=== PATIENT | male | born 1940 | race Caucasian/White ===

== ENCOUNTER 2023-03-18 08:57 | Outpatient (REF) | payer MEDICARE, MEDICAID, SELFPAY | END 2023-03-18 08:58 | disposition home or self-care (01) | LOC: CF 08:57 | PROVIDERS: Visit Provider Neurological Surgery | DX: Z13.89 Encounter for screening for other disorder (principal) ==

== ENCOUNTER 2023-03-31 14:18 | Outpatient (AMB) | payer MEDICARE, MEDICAID, SELFPAY ==
--- NOTE | 2023-03-31 15:35 | HO.SPINEOV ---
Intake Intake Visit Reasons: Back pain/MRI denied Converting Operator Required: No Assessment & Plan Assessment & Plan (1) Lumbar stenosis with neurogenic claudication: Code(s): M48.062 - Spinal stenosis, lumbar region with neurogenic claudication (2) Bilateral leg weakness: Code(s): R29.898 - Other symptoms and signs involving the musculoskeletal system Plan Dear colleague, On 03/31/2023, I saw Daquan Collier for back pain and severe bilateral leg pain with weakness. He underwent an L3-S1 lumbar fusion in 2021 and was doing fantastic up to a few months ago where he developed mild back pain. He then developed acute severe back pain radiating in both legs in the middle of the night. Since then the pain has persisted being 10/10. He also has weakness of his proximal legs and difficulty getting out of a chair. He can hardly walk or stand. He walks with a walker in a flexed position to get some relief. Sitting on a hard chair gives relief. Sleeping is very painful. It takes him 45 minutes to an hour to get comfortable in the morning. On exam, there is a 3/5 paresis of the bilateral iliopsoas with the right side is slightly weaker than the left side. There are no sensory changes. The absent reflexes. There is no imaging for review. This patient is suffering from acute back pain radiating down both legs with weakness a few months ago. Apparently an MRI was denied by the insurance company but obviously the symptoms warrant an MRI of the lumbar spine as his clinical presentation is highly suspicious for a acute disc herniation above the previous fusion. I will order the MRI of the lumbar spine and will see him after the test is done. I spent 45 minute in this consult for preparation, review of imaging and discussing plan of care. Jimmy Martin MD, PhD Spine Fellowship Trained Neurosurgeon Director, [facility] Orders: Orders MR lumbar spine wo con Today M48.062 - Spinal stenosis, lumbar region with neurogenic claudication, R29.898 - Other symptoms and signs involving the musculoskeletal system Coding Level of Care Code Est Pt Level 4 (01085) Diagnoses Lumbar stenosis with neurogenic claudication M48.062 Bilateral leg weakness R29.898
== END 2023-03-31 16:26 | disposition home or self-care (01) ==
PROVIDERS: PCP Family Medicine; Visit Provider Neurological Surgery
DX: M48.062 Spinal stenosis, lumbar region with neurogenic claudication (principal); R29.898 Other symptoms and signs involving the musculoskeletal system
CPT/HCPCS: 99214

== ENCOUNTER → 2023-03-31 14:18 | Outpatient (BNVA) | payer MEDICARE, MEDICAID, SELFPAY | PROVIDERS: PCP Family Medicine; Visit Provider Neurological Surgery | DX: M48.062 Spinal stenosis, lumbar region with neurogenic claudication (principal); R29.898 Other symptoms and signs involving the musculoskeletal system; Z98.1 Arthrodesis status | CPT/HCPCS: 99212 ==

== ENCOUNTER 2023-08-03 06:07 | Inpatient (IN) | payer MEDICARE, OTHER, SELFPAY ==
[2023-05-19 09:59] VITALS: BMI 31.6
--- NOTE | 2023-07-28 10:37 | HO.ANESPROP2 ---
Documented by User: Kiana Craig NP 07/30/23 14:12 HPI - Anesthesia Eval Consult details Narrative: 82yo M for L2-3 Transkambin Lumbar Interbody Fusion with Removal of previous L3-S1 Instrumentation PCP cleared. 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 No CP/SOB. Reviewed with Dr Malone. Ok to proceed. Pt unable to attend [facility] Active Problems Active Problems: All Active Problems Bilateral leg weakness (Acute) Lumbar stenosis with neurogenic claudication (Acute) Lumbar degenerative disc disease (Acute) Past Medical History Medical History (Updated 05/19/23 @ 09:57 by Salina Jackson, RN) History of prostate cancer BPH (benign prostatic hyperplasia) Ambulates with cane Weakness of both legs Back pain Spinal stenosis HTN (hypertension) Surgical History Surgical History Hx of melanoma excision History of carpal tunnel release Hx of colonoscopy Hx of inguinal hernia repair History of fusion of lumbar spine Hx of repair of right rotator cuff Social History Social History (Updated 05/19/23 @ 09:58 by Salina Jackson, DESTINEY) Household Members: Spouse Housing: Apartment Patient Tobacco Use Status: Never used Tobacco Use of substances other than those prescribed or required for medical reasons: No Have you been hit, kicked, punched, or otherwise hurt by someone within the past year? If so, by whom?: No Are you DNR?: No Advance Directives: No Advance Directives Information Provided: Yes Advance Directives on File: No Recently lost weight without trying: No Nutrition Risks: Surgical patient >75years Meds Allergies Allergy/AdvReac Type Severity Reaction Status Date / Time levofloxacin [From Levaquin] Allergy Severe Tingling Verified 08/03/23 06:19 all over Home Medications ?Medication ?Instructions ?Recorded ?Confirmed ?Last Taken ?Type cholecalciferol (vitamin D3) 125 125 mcg PO DAILY 05/18/23 08/03/23 08/02/23 History mcg (5,000 unit) tablet (Vitamin D3) docusate sodium 50 mg capsule 50 mg PO DAILY PRN Constipation 05/18/23 08/03/23 Unknown History finasteride 5 mg tablet 5 mg PO DAILY 05/18/23 08/03/23 08/02/23 History gabapentin 100 mg capsule 200 mg PO BEDTIME 05/18/23 08/03/23 08/02/23 History losartan 50 mg tablet 50 mg PO BID 05/18/23 08/03/23 08/02/23 History omeprazole 20 mg capsule,delayed 20 mg PO BID PRN Gastric Reflux 05/18/23 08/03/23 Unknown History release tamsulosin 0.4 mg capsule 0.4 mg PO DAILY 05/18/23 08/03/23 08/02/23 History Exam Height,Weight and Vital Signs: Height 5 ft 10 in Weight 99.79 kg Pertinent Lab Results Pertinent Lab Results: CBC and BMP from outside facility 06/2023 [place] Narrative Narrative: EKG 04/2023 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 Assessment and Plan Assessment Anesthesia Assessment: Chart Reviewed Documented by User: Pablito Guerra MD 08/03/23 07:08 [facility] Past Medical History Medical History (Updated 05/19/23 @ 09:57 by Salina Jackson, DETSINEY) History of prostate cancer BPH (benign prostatic hyperplasia) Ambulates with cane Weakness of both legs Back pain Spinal stenosis HTN (hypertension) Family History Family history of problems with anesthesia: No Surgical History Surgical History Hx of melanoma excision History of carpal tunnel release Hx of colonoscopy Hx of inguinal hernia repair History of fusion of lumbar spine Hx of repair of right rotator cuff History of Problems with Anesthesia: No Social History Social History (Updated 05/19/23 @ 09:58 by Salina Jackson RN) Household Members: Spouse Housing: Apartment Patient Tobacco Use Status: Never used Tobacco Use of substances other than those prescribed or required for medical reasons: No Have you been hit, kicked, punched, or otherwise hurt by someone within the past year? If so, by whom?: No Are you DNR?: No Advance Directives: No Advance Directives Information Provided: Yes Advance Directives on File: No Recently lost weight without trying: No Nutrition Risks: Surgical patient >75years Meds Allergies Allergy/AdvReac Type Severity Reaction Status Date / Time levofloxacin [From Levaquin] Allergy Severe Tingling Verified 08/03/23 06:19 all over Home Medications ?Medication ?Instructions ?Recorded ?Confirmed ?Last Taken ?Type cholecalciferol (vitamin D3) 125 125 mcg PO DAILY 05/18/23 08/03/23 08/02/23 History mcg (5,000 unit) tablet (Vitamin D3) docusate sodium 50 mg capsule 50 mg PO DAILY PRN Constipation 05/18/23 08/03/23 Unknown History finasteride 5 mg tablet 5 mg PO DAILY 05/18/23 08/03/23 08/02/23 History gabapentin 100 mg capsule 200 mg PO BEDTIME 05/18/23 08/03/23 08/02/23 History losartan 50 mg tablet 50 mg PO BID 05/18/23 08/03/23 08/02/23 History omeprazole 20 mg capsule,delayed 20 mg PO BID PRN Gastric Reflux 05/18/23 08/03/23 Unknown History release tamsulosin 0.4 mg capsule 0.4 mg PO DAILY 05/18/23 08/03/23 08/02/23 History Exam Airway Mallampati Class: I TM Dist: >3cm Neck ROM: Full Partial: Upper Loose/Missing/Broken Teeth: No Heart: rrr Lungs: cta Assessment and Plan Assessment Anesthesia Assessment: Anesthesia Plan Discussed Final Anesthetic Review Family History of Problems with Anesthesia: No History of Problems with Anesthesia: No NPO: Yes ASA Class: II Final Preanesthetic Review: No Changes in Pt Med Stat, Meds/Allgs Chart Reviewed, Consent Obtained/Reviewed and Anes Risks/Benef Reviewed Patient Risk: Intermediate Procedure Risk: Intermediate Anesthetic Plan Anesthetic Plan: GA Disposition: Standard PACU
[2023-08-03] VITALS (15 sets, daily range): BP systolic 131–173; BP diastolic 64–80; PULSE 71–93; RESP 16–20; TEMP 36.1–36.7; O2SAT 94–98; BMI 32.4; BMI 32.9
--- NOTE | ~2023-08-03 | FL_ITS ---
EXAMINATION: XR FLUOROSCOPY WITH IMAGES CLINICAL INFORMATION: L2-L3 Trans-Kambin Lumbar Interbody fusion. COMPARISON: X-ray outside March 2023. TECHNIQUE: Fluoroscopy Supervised By: Mario. Fluoroscopy Time: 84.8 seconds. Cumulative Dose: 57 mGy. DAP: 16 Gycm2. Images: 2. FINDINGS: Images demonstrate new posterior fusion hardware with rods and bilateral interpedicular screws and new disc interspacer at L2-L3. Disc cage seen at L3-L4. FL/FL guidance in OR IMPRESSION: Fluoroscopy guidance for lumbar spine surgery.
[2023-08-03] MEDS: Gabapentin 300 MG CAPSULE PO (06:44)
[2023-08-03] MEDS: methocarbamoL 750 MG TABLET PO (06:44)
[2023-08-03] MEDS: Lactated Ringers 1,000 ML 100 ML IVCONT (06:51)
--- NOTE | 2023-08-03 07:11 | P.HPSUR_ITS ---
Pre-Procedural Eval Section A - 24 Hr Update-Section A only Date of Service: 08/03/23 The patient is an INPATIENT: No Changes since office visit: No Cold of Flu in the past 2 weeks, No New Medical Problems, No Changes in Medication and No Patient answered all questions The patient has been examined within 24 hours of the surgical procedure. The History & Physical has been completed within 30 days and I have reviewed it.: No Section B - Complete if H&P > 30 days Chief Complaint: s/p L2-3 transkambin Allergies: Allergies Allergy/AdvReac Type Severity Reaction Status Date / Time levofloxacin [From Levaquin] Allergy Severe Tingling Verified 08/03/23 06:19 all over Review of Systems Sugical H&P ROS: Negative: Constitution, Cardiovascular, Respiratory, Neurological, Psychiatric, Hem-Onc, Allergic/Immunologic, Gastrointestinal, Genitourinary, Musculoskeletal, Integumentary, Endocrine and Eyes/Ea rs/Nose/Throat Exam Surgical H&P Exam: Normal: Neurological (awake, alert, oriented ) Plan Diagnosis/Plan: Unchanged L2-3 transkambin interbody fusion with revision of posterior instrumention Time Spent With Patient Time: Total time managing care of this patient today _5___ minutes.
--- NOTE | 2023-08-03 09:43 | W.PM.OPN ---
Operative Note Operative Note Date of Service: 08/03/23 Narrative: Preoperative diagnosis: 1) adjacent degenerative disc disease L2-3 with spinal stenosis 2) status post L3-S1 fusion Postprocedure diagnosis: 1) same as above Procedure: 1) L2-3 oblique lateral lumbar interbody fusion with discectomy, preparation of the endplates and placement of a titanium bullet cage packed with allograft, anterior to the transverse process in modified prone position, with intraoperative biplanar fluoroscopy imaging and electrophysiological monitoring 2) removal L3-S1 posterior instrumentation followed by posterior minimally invasive pedicle screw placement and posterior lateral instrumentation and fusion L2-3 with intraoperative biplanar fluoroscopic imaging and electrophysiological monitoring 3 injection of 10 cc of Exparel at the L2 bilateral transverse processi for a muscular erector spinae block and additional Exparel in paravertebral tissue for postop management Consent Informed Consent was obtained for this operation. I have explained the nature, purpose and benefits of the operation. I have discussed the risks and benefit of the operation including possible complications or adverse events with patient/family. Alternative(s) were discussed with the patient with their relative benefits and risks as well as the consequences of not accepting the operation were included in obtaining consent. Surgeon: LEN HEATH MD, PHD Procedure Assisted By: thi Patel Description of Procedure: This is a complex surgery on the lumbar spine and an life science research assistant as needed for safety of the surgery for setup of instrumentation, retraction and closing. History: This 82-year-old male had a previous L3-S1 fusion done. He presented with adjacent degenerative disc disease L2-3. The patient was offered an oblique lumbar lateral interbody fusion L2-3, removal of L3-S1 posterior instrumentation followed by a posterior lateral instrumented fusion L2-3. The procedure and complications were explained and the patient was consented. Procedure: The patient was brought to the operating room and endotracheally intubated. The patient was positioned on the Joseph spine table in a modified prone position for ease of access from the left side.. 2C arms were installed for fluoroscopy. Prepping and draping was done followed by timeout. The landmarks, including spinal processes, transverse processes, disc space, endplates and pedicles are identified and marked. The following steps are taken for each specified level: L2-3 level: Cage size 10 mm high and 30 mm long titanium . The patient was turned using the rotation of the surgical table so a near direct anterior lateral approach to the lumbar spine could be achieved. A small incision was then made superior to the mid iliac crest and then using biplanar fluoroscopy visualization, under electrophysiological monitoring and stimulation, we introduced an electrophysiological probe through the retroperitoneal space into the desired disc anterior to the transverse process and then passed it into the disc space after finding a silent window. The sleeve was retained and the probe was removed, then the K wire was passed sequentially into the disc space. A dilating tube was then passed along the same route. Following this, a working channel, a working channel was then passed sequentially into the disc space. The working channel was manually held in position while a series of disc cleaning tools were passed through the channel to remove the affected disc under clear and direct biplanar fluoroscopic visualization, decompress the nerve roots and equal corticated vertebral endplates at this segment. Arthrodesis of the intervertebral space via an anterior retroperitoneal exposure was achieved through Kambin's [place] and lateral extraforaminal space. Allograft was added into the anterior disc space. The working channel was then removed. A titanium interbody cage tightly packed with allograft was then inserted into the midportion of the intervertebral disc space over a K-wire under biplanar fluoroscopic visualization and intraoperative neuro monitoring. The inter pedicular and intradiscal space was significantly enlarged and disc height was restored to worked normal anatomy there for releasing pressure on the nerve roots visual largely the spinal canal and lateral recess as well as foramen were bilateral decompressed and all bones were confined to the borders of the disc space . Accordingly, the previous paramedian incisions were opened bilaterally to expose the posterior instrumentation. The locking caps are removed from L3-S1 bilaterally, the rods were taken out as well as the screws. A new 7.5 x 45 mm screw was inserted into the previous L3 path. Finally, the entry point to the left L2 pedicle is identified in the AP and lateral views and then the skin incision is injected with local anesthetic. We entered the pedicle with the pediguard tap after which a K-wire was introduced into the vertebral body. This was also done for the right L2 pedicle. Additionally, I used a small periosteal decorticator along the screws to refresh the surface of the bone and facet and I put some amount of allograft for additional stability for the posterolateral fusion. Over the K-wire we insert pedicle screws bilaterally with a diameter of 6.5 x 45 mm. After the screws were placed, we put the lito in place and under fluoroscopic imaging, we locked the lito in place and removed the screw tops and then each incision has been closed with 0 Vicryl for the fascia and a 3-0 Vicryl for the subdermal layer. Steri-Strips were used to approximate the incisions. An OpSite with Tegaderm was used to cover the incision. Final x-rays and AP and lateral projection showed good position of the interbody device and instrumentation. All sponge and needle counts were correct. The patient was extubated and transported in a stable condition to the recovery room. 2-0 Vicryl This procedure was done with the aid of a physician life science research assistant as a qualified resident was not available. Anesthesia: General Estimated Blood Loss (ml): 30 mL Specimen: None Duration of Surgery: 90 minutes Postoperative Plan: Admit to inpatient
[2023-08-03] MEDS: Ketorolac Tromethamine 15 MG/ML VIAL IVPUSH ×2 (11:53→17:00)
[2023-08-03] MEDS: ceFAZolin Sodium/Dextrose,Iso 2 GM/50 ML PIGGYBACK IV ×2 (13:43→20:35)
--- NOTE | 2023-08-03 14:00 | PHA.MEDREC ---
Pharmacy Consult ? Medication Reconciliation Pharmacy has completed the medication reconciliation.
[2023-08-03] MEDS: Acetaminophen 1,000 MG/100 ML PIGGYBACK 400 MG IV ×2 (14:34→20:11)
--- NOTE | 2023-08-03 14:35 | PC.NURSE ---
pt voided at this time
[2023-08-03] MEDS: Gabapentin 100 MG CAPSULE 200 MG PO (20:05)
[2023-08-03] MEDS: hydrOXYzine HCL 25 MG TABLET PO (20:05)
[2023-08-03] MEDS: Losartan Potassium 50 MG TABLET PO (20:06)
[2023-08-04] MEDS: Ketorolac Tromethamine 15 MG/ML VIAL IVPUSH ×3 (01:25→13:29)
[2023-08-04] MEDS: Acetaminophen 1,000 MG/100 ML PIGGYBACK 400 MG IV ×2 (01:36→09:36)
[2023-08-04] MEDS: ceFAZolin Sodium/Dextrose,Iso 2 GM/50 ML PIGGYBACK IV (01:56)
[2023-08-04 03:07] VITALS: BP 131/62; PULSE 67; RESP 18; TEMP 36.3; O2SAT 94
[2023-08-04] MEDS: Omeprazole 20 MG CAPSULE.DR PO (05:19)
[2023-08-04 06:53] VITALS: BP 145/63; PULSE 69; RESP 16; TEMP 36.6; O2SAT 97
--- NOTE | 2023-08-04 07:22 | P.DS_ITS ---
DS: Providers Provider Date of Service: 08/04/23 Date of admission: 08/03/23 06:07 Primary care physician: Javi Mcginnis MD DS: Summary Time Attestation Discharge Coordination Time (in mins): 10 Quality: Safe Use of Opioids Does Pt have an Active Cancer Diagnosis on the Problem List?: No Quality: Stroke Does the patient have a stroke diagnosis?: No Physical Exam Vital Signs: Vital Signs: Last Vital Signs Temp 97.9 F 08/04/23 06:53 Pulse 69 08/04/23 06:53 Resp 16 08/04/23 06:53 BP 145/63 H 08/04/23 06:53 Pulse Ox 97 08/04/23 06:53 O2 Del Method Room Air 08/04/23 06:53 O2 Flow Rate 2 08/03/23 11:15 BMI result Body Mass Index 32.9 Discharge Plan Discharge Anticipated Discharge Date/Time: 08/04/23 07:24 Patient Disposition: Home, Self-Care Discharge Diagnosis: S/P L2-3 Transkambin lumbar fusion Referrals: Javi Mcginnis MD [Primary Care Provider] - 1 Week Discharge Medications: New oxycodone 5 mg tablet 5 mg PO Q6H PRN (Reason: severe pain (scale score 7-10)) Qty: 30 0RF Rx Instructions: Partial Fill upon patient request. hydroxyzine HCl 25 mg tablet 25 mg PO TID Qty: 30 0RF gabapentin 300 mg capsule 300 mg PO TID Qty: 60 0RF baclofen 5 mg tablet 5 mg PO TID Qty: 30 0RF Continued losartan 50 mg tablet 50 mg PO BID tamsulosin 0.4 mg capsule 0.4 mg PO DAILY omeprazole 20 mg capsule,delayed release(DR/EC) 20 mg PO BID PRN (Reason: Gastric Reflux) finasteride 5 mg tablet 5 mg PO DAILY docusate sodium 50 mg Capsule 100 mg PO BEDTIME PRN (Reason: Constipation) cholecalciferol (vitamin D3) [Vitamin D3] 125 mcg (5,000 unit) Tablet 125 mcg PO DAILY Held gabapentin 100 mg capsule 200 mg PO BEDTIME Hold Instructions: Resume on 09/03/23. Take gabapentin that we Rx for time being Discharge Orders: Discharge Order (Routine); Ordered 08/04/23 Ordered By: Surinder Kirkland Diet: Advance to usual diet Activity on Discharge: As tolerated Stand Alone Forms: Patient Portal Discharge page Print Language: Malaysian Care Plan Goals: Return to normal activity as tolerated Health Concerns: None Plan of Treatment: Follow-up in clinic in 2-3 weeks Assessment: POD: 1 Procedure: L2-3 Transkambin lumbar fusion, removal of previous hardware L3-S1 Daquan was seen this morning sitting upright in bed on 3-. Patient reports he is up ambulating to the bathroom and tolerating diet. He He still reports mild low back / right leg pain, with good relief with pain medication. He states he is agreeable to returning home today and overall feels better than he did pre-operatively. Afebrile, vital signs stable. Full strength 5/5 LEs. Back dressings have some staining without signs of hematoma. No active sanguineous drainage. Area is dry. Plan: Daquan is POD:1 s/p L2-3 Transkambin with removal of previous fusion instrumentation. He is voiding well, ambulating independently, and tolerating diet. I sent in a prescription for oxycodone, gabapentin, hydroxyzine, baclof en. The patient was encouraged that the right-sided leg pain should resolve in the coming weeks, and is likely a result of the surgery. As long as the patient is cleared by Physical therapy this morning there should be no barriers to him returning home. This plan was discussed with the attending neurosurgeon Dr. Martin. Surinder Martin MD,PhD [facility]
--- NOTE | 2023-08-04 07:33 | HO.NEUROPN_ITS ---
Neurosurgery Operative Note Date of Service: 08/04/23 Narrative: POD: 1 Procedure: L2-3 Transkambin lumbar fusion, removal of previous hardware L3-S1 Daquan was seen this morning sitting upright in bed on . Patient reports he is up ambulating to the bathroom and tolerating diet. He He still reports mild low back / right leg pain, with good relief with pain medication. He states he is agreeable to returning home today and overall feels better than he did pre-operatively. Afebrile, vital signs stable. Full strength 5/5 LEs. Back dressings have some staining without signs of hematoma. No active sanguineous drainage. Area is dry. Plan: Daquan is POD:1 s/p L2-3 Transkambin with removal of previous fusion instrumentation. He is voiding well, ambulating independently, and tolerating diet. I sent in a prescription for oxycodone, gabapentin, hydroxyzine, baclofen. The patient was encouraged that the right-sided leg pain should resolve in the coming weeks, and is likely a result of the surgery. As long as the patient is cleared by Physical therapy this morning there should be no barriers to him returning home. This plan was discussed with the attending neurosurgeon Dr. Martin. Surinder Martin MD,PhD [facility]
--- NOTE | 2023-08-04 09:08 | MHC.CM.PN ---
IMM DELIVERED. PT LIVES WITH . PT USES [facility] FOR MOBILITY. +HCP AT HOME, COPY REQUESTED. PCP DR. MAGALI BARBOSA DP: PT HAS BEEN MEDICALLY CLEARED FOR DC HOME WITH NEW SERVICES VIA [facility]PT[facility] AND IS ABLE TO [place], CONTRACTED WITH INSURANCE. SON WILL TRANSPORT HOME AT 4 PM.
[2023-08-04 09:36] VITALS: BP 145/63
[2023-08-04] MEDS: Finasteride 5 MG TABLET PO (09:36)
[2023-08-04] MEDS: Losartan Potassium 50 MG TABLET PO (09:36)
[2023-08-04] MEDS: hydrOXYzine HCL 25 MG TABLET PO (09:36)
[2023-08-04] MEDS: Cholecalciferol (Vitamin D3) 25 MCG TABLET 125 MCG PO (09:36)
[2023-08-04] MEDS: Tamsulosin HCL 0.4 MG CAPSULE PO (09:36)
--- NOTE | 2023-08-04 09:37 | W.MHC.F2F ---
Service Date Service Date: 08/04/23 Encounter Date of encounter: 08/04/23 Reasons for Services Signs and symptoms assessed: patient is s/p L2-3 lumbar fusion on 08/03/23 Reason for physical therapy: home safety and mobility, therapeutic exercises, gait/transfer training and ADL training Reason for occupational therapy: home safety and mobility, therapeutic exercises, gait/transfer training, ADL training and energy conservation Homebound: Leaving the home is medically contraindicated at this time without the asist of a device and/or another person due th the listed conditions above and below. Reason homebound: unsteady gait / fall risk, pain with ambulation and pain with transfers Certification: Based on the above findings, I certify that this patient is confined to the home and needs intermittent custodial care, physical therapy and/or speech therapy, or continues to need occupational therapy. The patient is under my care, and I have initiated the establishment of the plan of care. The patient will be followed by a physician who will periodically review the plan of care. Time Spent With Patient Time: Total time managing care of this patient today _30___ minutes.
--- NOTE | 2023-08-04 14:52 | HO.POSTANES ---
Post Anesthesia Evaluation Post Anesthesia Evaluation Date of Service: 08/04/23 Vital Signs: Vital Signs Temp Pulse Resp BP Pulse Ox O2 Del Method 08/04/23 09:36 145/63 H 08/04/23 06:53 97.9 F 69 16 145/63 H 97 Room Air 08/04/23 03:07 97.4 F 67 18 131/62 94 Room Air Anesthesia: General Endotracheal-GETA Mental Status: Awake Pain Control: Satisfactory Nausea/Vomiting: None Hydration: Adequate Anesthesia-Related Issues: No Anes. Related Issues
== END 2023-08-04 17:02 | disposition home health service (06) | DRG 460 ==
LOC: HO.SSSA 06:47 → HO.S3 10:27
PROVIDERS: Neurological Surgery; Admitting Provider Physician Assistant; PCP Family Medicine; Visit Provider Physician Assistant
PROC: 0SG00A0 Fusion of Lumbar Vertebral Joint with Interbody Fusion Device, Anterior Approach, Anterior Column, Open Approach (ICD-10-PCS; principal; 2023-08-03 07:30)
DX: M48.062 Spinal stenosis, lumbar region with neurogenic claudication (principal); M51.36 Other intervertebral disc degeneration, lumbar region; N40.0 Benign prostatic hyperplasia without lower urinary tract symptoms; Z79.899 Other long term (current) drug therapy
CPT/HCPCS: 97116; 97162; C1713; C1889; C9290; J0131; J0665; J0690; J1100; J1170; J1885; J2250; J2310; J2405; J2704; J3010; L8699

== ENCOUNTER → 2023-08-03 06:07 | Outpatient (BNV) | payer MEDICARE, MEDICAID, SELFPAY | PROVIDERS: Admitting Provider Physician Assistant; PCP Family Medicine; Visit Provider Neurological Surgery | DX: M48.062 Spinal stenosis, lumbar region with neurogenic claudication (principal); Z48.89 Encounter for other specified surgical aftercare | CPT/HCPCS: 20930; 22558; 22612; 22840; 22853; 63056; 99024; 99499; G0180 ==

== ENCOUNTER 2023-08-09 13:15 | Outpatient (REF) | payer MEDICARE, OTHER, SELFPAY | END 2023-08-09 13:16 | disposition home or self-care (01) | LOC: HO.HOSX 13:15 | PROVIDERS: Visit Provider Physician Assistant | DX: Z13.89 Encounter for screening for other disorder (principal) ==

== ENCOUNTER 2023-08-10 14:28 | Outpatient (REF) | payer MEDICARE, OTHER, SELFPAY ==
--- NOTE | ~2023-08-10 | XR_ITS ---
EXAMINATION: XR LUMBOSACRAL SPINE WITH OBLIQUES CLINICAL INFORMATION: Spinal stenosis lumbar region with neurogenic claudication. COMPARISON: 08/03/2023 fluoroscopy images. 03/02/2023 lumbar spine x-ray outside images from [facility]. TECHNIQUE: 5 views of the lumbar spine including flexion and extension lateral views centered on the surgical site. FINDINGS: Levoscoliosis of the lumbar spine. Straightening of the normal lumbar lordosis. Facet arthritis in the lower lumbar spine. Bilateral rods and pedicular screws spanning L2-L3 with disc spacer. Interdisc device is also noted at L3-L4, L4-L5, and L5-S1. Hardware appears intact. Minimal grade 1 retrolisthesis of L2 on L3 with flexion and extension. XR/XR lumbar spine 4V min IMPRESSION: 1. Postsurgical changes L2-S1. Hardware appears intact. 2. Minimal grade 1 retrolisthesis of L2 on L3 with flexion and extension.
== END 2023-08-10 14:29 | disposition home or self-care (01) ==
LOC: HO.XRAY 14:28
PROVIDERS: PCP Family Medicine; Visit Provider Physician Assistant
DX: M48.062 Spinal stenosis, lumbar region with neurogenic claudication (principal)
CPT/HCPCS: 72110

== ENCOUNTER 2023-08-10 14:28 | Outpatient (REF) | payer MEDICARE, OTHER, SELFPAY | END 2023-08-10 14:29 | disposition home or self-care (01) | LOC: HO.HOSX 14:28 | PROVIDERS: Visit Provider Physician Assistant | DX: Z98.1 Arthrodesis status (principal) | CPT/HCPCS: 99212 ==

== ENCOUNTER 2023-08-27 14:45 | Outpatient (AMB) | payer MEDICARE, OTHER, SELFPAY ==
--- NOTE | 2023-08-27 15:09 | A.SPINEOV_ITS ---
Intake Visit Reasons: 1st post op Intake Note: Mr. Collier is here today for 1st post op appointment. 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 The burning pain he was having down the front of his thighs is gone thankfully. The main issue he is having now is on the left side of his back he is continuing to have significant pain a few hours after he gets up in the morning. It can be particularly bad if he is standing or sitting in a chair. If he lays down for 10 -15 minutes, he can get back going again for few hours, then he has to lay down and repeat the process again throughout the night. By around 05:00 o'clock in the evening he is pretty much fatigued from this process and will be done for the day. He will take a Tylenol if needed. He has been avoiding the oxycodone. I examined him today and he is able to stand up out of his own out of the chair with a cane. His strength seems full and his wounds are all healed up nicely. I reviewed his x-rays from a few weeks ago and these look great. We discussed activity guidelines, restrictions and expectations after lumbar fusion. I explained to him that the healing process is going to be slower this time around because it is a 2nd operation and now he has a total of 4 fused segments in his back. I also told him that it is normal that he would expect to have back pain moving forward, but I think this significant postoperative pain will recede with time. I gave him an Brashear LSO just to help with some of the pain. It is to be worn as needed. I also gave him a referral to PT just to do some general mobility exercises and help with some of the pain control. I would like to see him back in 6 weeks with a set of x-rays. Jayant Martin MD, PhD [facility] Orders: Orders PT Evaluation and Treatment Today Z98.1 - Arthrodesis status XR lumbar spine 4V min Today Z98.1 - Arthrodesis status Medications: New [Brashear LSO] Brashear LSO or other equivalent 1 units 0RF Coding Level of Care Code Global (11305) Diagnoses S/P lumbar fusion Z98.1
== END 2023-08-27 15:50 | disposition home or self-care (01) ==
PROVIDERS: PCP Family Medicine; Visit Provider Physician Assistant
DX: Z98.1 Arthrodesis status (principal)
CPT/HCPCS: 99024

== ENCOUNTER 2023-08-27 14:45 | Outpatient (REF) | payer MEDICARE, OTHER, SELFPAY | END 2023-08-27 14:46 | disposition home or self-care (01) | LOC: HO.HOSX 14:45 | PROVIDERS: PCP Family Medicine; Visit Provider Physician Assistant | DX: Z47.89 Encounter for other orthopedic aftercare (principal); Z98.1 Arthrodesis status | CPT/HCPCS: 99212 ==

== ENCOUNTER 2023-10-15 14:05 | Outpatient (REF) | payer MEDICARE, OTHER, SELFPAY ==
--- NOTE | ~2023-10-15 | XR_ITS ---
EXAMINATION: XR LUMBAR SPINE CLINICAL INFORMATION: Postop. Arthrodesis status. COMPARISON: Lumbar spine radiograph dated 08/10/2023. TECHNIQUE: AP, lateral, coned-down, flexion, and extension views of the lumbar spine. FINDINGS: Redemonstration of posterior stabilization hardware at L2-L3 with intervertebral disc hardware at L2-S1. Straightening of the normal lumbar lordosis which may be positional or related to muscular spasm. No acute fracture or subluxation. No significant subluxation with flexion or extension. No loss of vertebral body height. Multilevel endplate osteophytes, unchanged. Lower lumbar spine facet arthropathy is redemonstrated. No concerning lytic or blastic osseous lesion. XR/XR lumbar spine 4V min IMPRESSION: 1. Posterior stabilization hardware at L2-S1 with intervertebral disc hardware at L2-S1. No evidence of hardware complication. 2. Straightening of the normal lumbar lordosis which may be positional or related to muscular spasm. Electronically signed by: Maco Beltrán MD 11/10/2023 09:43 PM EDT
== END 2023-10-15 14:06 | disposition home or self-care (01) ==
LOC: HO.XRAY 14:05
PROVIDERS: PCP Family Medicine; Visit Provider Physician Assistant
DX: Z98.1 Arthrodesis status (principal)
CPT/HCPCS: 72110; 99212

== ENCOUNTER 2023-10-15 14:42 | Outpatient (AMB) | payer MEDICARE, OTHER, SELFPAY ==
--- NOTE | 2023-10-15 14:46 | HO.SPINEOV ---
Intake Visit Reasons: 2nd post op with xrays Intake Note: Ms. Collier is here today for his 2nd post-op visit with x-rays. 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 Since our last visit in late July, he is continued to struggle with back pain with standing and walking. It seems to start on the left side near the most lateral incision then crosses across midline to the right side of his back. He can not walk for more than 5 or 10 minutes before he has to sit down. When he is lying down he can hear creaking noise in his back. From time to time the pain can get so bad that he will avoid activities because he just simply can not walk. He does not have the pain that he had preoperatively that was radiating down his legs. Some of the current pain that he is feeling is similar to what he had before surgery. On my exam today he is able to stand up on his own and his leg strength is full. His wounds have all healed up. I reviewed his x-ray and it shows that the locking cap for the right L2 screw has backed out. I do not see any movement or translation of the screws with flexion or extension and the cage remains in place where it was left in the operating room. I sat down with him and showed him his x-ray. I explained to him that I am not sure if the locking cap screw has anything to do with his back pain as he does have now a 4 level interbody fusion and tremendous amounts of scar tissue and muscular trauma from his surgeries that could also be part of the explanation for his pain. The fact that his preoperative leg pain is gone and he is more mobile in the sense that he can stand without the leg pain is excellent, but the fact that his endurance with walking is poor because of back pain leads me to believe we should get a noncontrast CT just to evaluate this and make sure that there is no loosening of the screw. I will update Dr. Martin on his status and let the patient know if he has any other thoughts on the matter. I did go back and look at the operative report and I do not see anything suggesting had poor bone quality, but I do see that he was prescribed a brace after surgery which usually suggests that there is poor bone quality. Jayant Martin MD, PhD [facility] [place] [facility] Orders: Orders CT lumbar spine wo IV con Today Z98.1 - Arthrodesis status Coding Level of Care Code Global (08714) Diagnoses S/P lumbar fusion Z98.1
== END 2023-10-15 15:38 | disposition home or self-care (01) ==
PROVIDERS: PCP Family Medicine; Visit Provider Physician Assistant
DX: Z98.1 Arthrodesis status (principal)
CPT/HCPCS: 99024

== ENCOUNTER → 2024-04-04 11:00 | Outpatient (BNV) | payer MEDICARE, MEDICAID, SELFPAY | PROVIDERS: Admitting Provider Neurological Surgery; PCP Family Medicine; Visit Provider Neurological Surgery | DX: Z48.89 Encounter for other specified surgical aftercare (principal) | CPT/HCPCS: 22850; 99024; 99499 ==

== ENCOUNTER 2024-04-04 13:49 | Day surgery (SDC) | payer MEDICARE, OTHER, SELFPAY ==
[2024-03-17 10:50] VITALS: BMI 32.3
[2024-04-04] VITALS (16 sets, daily range): BP systolic 138–173; BP diastolic 74–88; PULSE 56–75; RESP 14–18; TEMP 36–36.4; O2SAT 94–98; BMI 31.1
--- NOTE | ~2024-04-04 | FL_ITS ---
EXAMINATION: FL GUIDANCE ONLY HISTORY: Revision posterior instrumentation L2-L3 COMPARISON: Correlation is made to plain films of the lumbar spine dated 10/15/2023. TECHNIQUE: Fluoroscopy time: 2.7 seconds. Cumulative Dose: 2.7089 mGy. DAP: 1.1774 mGym2 Images: 2. FINDINGS: Fluoroscopic spot images of the lumbar spine demonstrate a probe directed toward the L2-3 vertebral body from a posterior approach. FL/FL guidance in OR IMPRESSION: Fluoroscopy during procedure. Please see procedure report for additional information. Electronically signed by: Grayson Vallejo MD 04/04/2024 02:29 PM FER
--- NOTE | 2024-04-04 07:51 | ECG_ITS ---
Test Reason : SHORT STAY Blood Pressure : */* mmHG Vent. Rate : 62 BPM Atrial Rate : 62 BPM P-R Int : 230 ms QRS Dur : 158 ms QT Int : 438 ms P-R-T Axes : 74 -74 53 degrees QTcB Int : 444 ms Sinus rhythm with 1st degree A-V block Left axis deviation Right bundle branch block Inferior infarct , age undetermined Abnormal ECG No previous ECGs available Referred By: Kiana Craig Electronically Signed By: Chidi Bravo
[2024-04-04] MEDS: methocarbamoL 750 MG TABLET PO (08:31)
[2024-04-04] MEDS: Gabapentin 300 MG CAPSULE PO (08:31)
[2024-04-04] MEDS: Lactated Ringers 1,000 ML 100 ML IVCONT (08:39)
--- NOTE | 2024-04-04 10:58 | MHC.SHP ---
Pre-Procedural Eval Section A - 24 Hr Update-Section A only Date of Service: 04/04/24 The patient is an INPATIENT: No Changes since office visit: No Cold of Flu in the past 2 weeks, No New Medical Problems, No Changes in Medication and No Patient answered all questions The patient has been examined within 24 hours of the surgical procedure. The History & Physical has been completed within 30 days and I have reviewed it.: No Section B - Complete if H&P > 30 days Chief Complaint: Spinal stenosis, lumbar neurogenic,Arthrodesis Allergies: Allergies Allergy/AdvReac Type Severity Reaction Status Date / Time levofloxacin [From Levaquin] Allergy Severe Tingling Verified 04/04/24 08:20 all over Review of Systems Sugical H&P ROS: Negative: Constitution, Cardiovascular, Respiratory, Neurological, Psychiatric, Hem-Onc, Allergic/Immunologic, Gastrointestinal, Genitourinary, Musculoskeletal, Integumentary, Endocrine and Eyes/Ears/Nose/Throat Exam Surgical H&P Exam: Normal: HEENT, Normal: Heart, Normal: Lungs, Normal: Extremities, Normal: Abdomen, Normal: Skin and Normal: Neurological (awake, alert,oriented x 3 ) Plan Diagnosis/Plan: Unchanged Removal of L2-3 hardware Time Spent With Patient Time: Total time managing care of this patient today _5___ minutes.
--- NOTE | 2024-04-04 11:00 | P.CONAN_ITS ---
Documented by User: Kiana Craig NP 03/20/24 14:34 HPI - Anesthesia Eval Consult details Narrative: 83yo M for Revision of posterior instrumentation L2-3 (Previous L2-3 Transkambin Lumbar Interbody Fusion), 04/04/24 s/p TLIF 07/2023 with GA-ETT 7 Per 07/2023 preop anesthesia eval: PCP cleared. 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 No CP/SOB. PMFSH Active Problems Active Problems: All Active Problems S/P lumbar fusion (Acute) Bilateral leg weakness (Acute) Lumbar stenosis with neurogenic claudication (Acute) Lumbar degenerative disc disease (Acute) Past Medical History Medical History (Updated 04/04/24 @ 08:19 by Marina Mistry RN) RBBB First degree AV block Prostate cancer Arthritis GERD (gastroesophageal reflux disease) BPH (benign prostatic hyperplasia) Ambulates with cane Weakness of both legs Back pain Spinal stenosis HTN (hypertension) Family History Family history of problems with anesthesia: No Surgical History Surgical History History of lumbar surgery (08/23/23) Hx of melanoma excision History of carpal tunnel release Hx of colonoscopy Hx of inguinal hernia repair History of fusion of lumbar spine Hx of repair of right rotator cuff History of Problems with Anesthesia: No Social History Social History (Updated 12/06/23 @ 10:08 by Salina Jackson RN) Household Members: Spouse Housing: Apartment Are you a primary ocular care technologist to a significant other at home: No Do you presently have visiting nurse or other home services: No Patient Tobacco Use Status: Former Tobacco user Tobacco use type: Cigarette Years Smoked: 5 Use of substances other than those prescribed or required for medical reasons: No Have you been hit, kicked, punched, or otherwise hurt by someone within the past year? If so, by whom?: No Spiritual Healthcare Practices: none Taoism Healthcare Practices: Episcopal Cultural Healthcare Practices: none Are you DNR?: No Advance Directives: No (states daughter is HCP) Advance Directives Information Provided: Yes Advance Directives on File: No Recently lost weight without trying: No Eating poorly because of decreased appetite: No Nutrition Risks: Surgical patient >75years Poor oral hygiene: No (upper partial) service: No Meds Allergies Allergy/AdvReac Type Severity Reaction Status Date / Time levofloxacin [From Levaquin] Allergy Severe Tingling Verified 04/04/24 08:20 all over Home Medications ?Medication ?Instructions ?Recorded ?Confirmed ?Last Taken ?Type cholecalciferol (vitamin D3) 125 125 mcg PO DAILY 05/18/23 04/04/24 04/03/24 History mcg (5,000 unit) tablet (Vitamin D3) docusate sodium 50 mg capsule 100 mg PO BEDTIME PRN Constipation 05/18/23 04/04/24 04/03/24 History finasteride 5 mg tablet 5 mg PO QAM 05/18/23 04/04/24 04/03/24 History losartan 50 mg tablet 50 mg PO BID 05/18/23 04/04/24 04/03/24 History omeprazole 20 mg capsule,delayed 20 mg PO BID PRN Gastric Reflux 05/18/23 04/04/24 04/03/24 History release tamsulosin 0.4 mg capsule 0.4 mg PO QAM 05/18/23 04/04/24 04/03/24 History ibuprofen 200 mg tablet 400 mg PO Q8H PRN Pain 12/06/23 04/04/24 03/29/24 History Exam Height,Weight and Vital Signs: Height 5 ft 10 in Weight 102.058 kg Pertinent Lab Results Pertinent Lab Results: 10/2023 CBC and BMP from outside [place] Narrative Narrative: EKG 04/2023 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 Assessment and Plan Assessment Anesthesia Assessment: Chart Reviewed Final Anesthetic Review Family History of Problems with Anesthesia: No History of Problems with Anesthesia: No Documented by User: Hilary Mccall DO 04/04/24 11:20 HPI - Anesthesia Eval Consult details Narrative: 83yo M for Revision of posterior instrumentation L2-3 (Previous L2-3 Transkambin Lumbar Interbody Fusion), 04/04/24 s/p TLIF 07/2023 with GA-ETT 7 Per 07/2023 preop anesthesia eval: PCP cleared. 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 No CP/SOB. [facility] Past Medical History Medical History (Updated 04/04/24 @ 08:19 by Marina Mistry RN) RBBB First degree AV block Prostate cancer Arthritis GERD (gastroesophageal reflux disease) BPH (benign prostatic hyperplasia) Ambulates with cane Weakness of both legs Back pain Spinal stenosis HTN (hypertension) Family History Family history of problems with anesthesia: No Surgical History Surgical History History of lumbar surgery (08/23/23) Hx of melanoma excision History of carpal tunnel release Hx of colonoscopy Hx of inguinal hernia repair History of fusion of lumbar spine Hx of repair of right rotator cuff History of Problems with Anesthesia: No Social History Social History (Updated 12/06/23 @ 10:08 by Salina Jackson RN) Household Members: Spouse Housing: Apartment Are you a primary ocular care technologist to a significant other at home: No Do you presently have visiting nurse or other home services: No Patient Tobacco Use Status: Former Tobacco user Tobacco use type: Cigarette Years Smoked: 5 Use of substances other than those prescribed or required for medical reasons: No Have you been hit, kicked, punched, or otherwise hurt by someone within the past year? If so, by whom?: No Spiritual Healthcare Practices: none Taoism Healthcare Practices: Episcopal Cultural Healthcare Practices: none Are you DNR?: No Advance Directives: No (states daughter is HCP) Advance Directives Information Provided: Yes Advance Directives on File: No Recently lost weight without trying: No Eating poorly because of decreased appetite: No Nutrition Risks: Surgical patient >75years Poor oral hygiene: No (upper partial) service: No Meds Allergies Allergy/AdvReac Type Severity Reaction Status Date / Time levofloxacin [From Levaquin] Allergy Severe Tingling Verified 04/04/24 08:20 all over Home Medications ?Medication ?Instructions ?Recorded ?Confirmed ?Last Taken ?Type cholecalciferol (vitamin D3) 125 125 mcg PO DAILY 05/18/23 04/04/24 04/03/24 History mcg (5,000 unit) tablet (Vitamin D3) docusate sodium 50 mg capsule 100 mg PO BEDTIME PRN Constipation 05/18/23 04/04/24 04/03/24 History finasteride 5 mg tablet 5 mg PO QAM 05/18/23 04/04/24 04/03/24 History losartan 50 mg tablet 50 mg PO BID 05/18/23 04/04/24 04/03/24 History omeprazole 20 mg capsule,delayed 20 mg PO BID PRN Gastric Reflux 05/18/23 04/04/24 04/03/24 History release tamsulosin 0.4 mg capsule 0.4 mg PO QAM 05/18/23 04/04/24 04/03/24 History ibuprofen 200 mg tablet 400 mg PO Q8H PRN Pain 12/06/23 04/04/24 03/29/24 History Exam Exam Date and Time: 04/04/24 1100 Height,Weight and Vital Signs: Height 5 ft 10 in Weight 102.058 kg Vital Signs Temperature 97.3 F 04/04/24 08:23 Pulse Rate 62 04/04/24 08:23 Respiratory Rate 16 04/04/24 08:23 Blood Pressure 173/75 H 04/04/24 08:23 Pulse Oximetry 98 04/04/24 08:23 Oxygen Delivery Method Room Air 04/04/24 08:23 Temperature 97.3 F 04/04/24 08:23 Pulse Rate 62 04/04/24 08:23 Respiratory Rate 16 04/04/24 08:23 Blood Pressure 173/75 H 04/04/24 08:23 Pulse Oximetry 98 04/04/24 08:23 Oxygen Delivery Method Room Air 04/04/24 08:23 Height 5 ft 10 in Weight 98.3 kg Airway Mallampati Class: II TM Dist: >3cm Neck ROM: Full Partial: Upper Heart: S1S2 Lungs: CTAB Assessment and Plan Assessment Anesthesia Assessment: Anesthesia Plan Discussed and Chart Reviewed Final Anesthetic Review Family History of Problems with Anesthesia: No History of Problems with Anesthesia: No NPO: Yes ASA Class: III Final Preanesthetic Review: No Changes in Pt Med Stat, Meds/Allgs Chart Reviewed, Consent Obtained/Reviewed and Anes Risks/Benef Reviewed Patient Risk: Intermediate Procedure Risk: Intermediate Anesthetic Plan Anesthetic Plan: GA and Agree w/ Assess. and Plan Disposition: Standard PACU
--- NOTE | 2024-04-04 12:25 | P.OP_ITS ---
Operative Note Operative Note Date of Service: 04/04/24 Narrative: Preoperative diagnosis: Pain for L2-3 hardware/L2-3 hardware failure Postoperative diagnosis: Same Procedure: Removal L2-3 posterior instrumentation Surgeon: Jimmy Martin MD, PhD Grinder And Honer Operator Automatic: thi Patel This patient underwent an L2-3 lumbar fusion. It was noted that the locking cap came off the right L2 pedicle screw. Over time he started to complain of a squeaky sound in his back. A CT of the lumbar spine was done which showed fusion of the L2-3 level. Therefore it was decided to remove the L2-3 hardware. The procedure complications were explained. The patient was consented. The patient was brought to the operating room and endotracheally intubated. The patient was turned in a prone position on the Joseph spine table Prepping and draping was done followed by time-out. The previous paramedian incisions were opened and the L2-3 posterior instrumentation was exposed. First, the locking caps and rods were removed on the left side. Then the pedicle screws were removed. Then the right side was exposed. The dislocated locking cap was not identified and removed. The other locking cap was removed as well as the lito. Finally the pedicle screws were removed on this side as well. Hemostasis was done. Marcaine was injected intramuscularly.The incision was closed in two layers. Steri-Strips used to approximate the incision. An op-site were taken there was used to cover the incision. All sponge and needle counts were correct. Patient was extubated and transported in stable condition to recovery room. this procedure was done with the aid of a physician assistant chief nursing officer who performed the removal of the posterior instrumentation on the right side. Anesthesia: General Blood loss: 30 mL Complications: None Specimen: None Surgical time: 30 minutes Disposition: Discharge home
--- OUTSIDE RECORDS SUMMARY | 2024-04-04 14:01 | XMS_ITS | Encounter Summary ---
Author Organization [facility] Address [address] [place] [address] Care Team Providers Care Map Clerk Name Role Phone Javi Mcginnis MD Primary Care Provider [phone] Reason for Visit * Episode Based Medications (Routine) - Authorized Specialty Diagnoses / Procedures Referred By Contac t Referred To Contact Diagnoses Vitamin B12 deficiency Partha Trevino MD [address] [place] [id number] Phone: tel: fax: [address] [address] Phone: tel: Referral ID Status Reason Start Date Expiration Date V isits Requested Visits Authorized [id number] Authorized 12/23/2022 12/28/2025 6 6 Encounter Details Date Type Department Care Team (Late st Contact Info) Description 03/14/2024 12:30 PM EST Infusion [address] [address] Flaquito Davila, RN Vitamin B12 deficiency (Primary Dx) Social History Tobacco Use Types Packs/Day Years Used Date Smoking Tobacco: Former Cigarettes Smokeless Tobacco: Never Alcohol Use Standard Drinks/Week Comments Not Currently 0 (1 standard drink = 0.6 oz pur e alcohol) Sex and Gender Information Value Date Recorded Sex Assigned at Male 12/14/2022 10:20 AM EDT Legal Sex Male 3:39 PM EDT Gender Identity Not on file Sexual Orientation Not on file documented as of this encounter Last Filed Vital Signs Vital Sign Reading Time Taken Comments Blood Pressure 164/82 03/14/2024 12:37 PM EST Pulse 72 03/14/2024 12:37 PM EST Temperature 36.5 ??C (97.7 ??F) 03/14/2024 12:[address] Respiratory Rate 18 03/14/2024 12:37 PM EST Oxygen Saturation 94% 03/14/2024 12:37 PM EST Inhaled Oxygen Concentration - - Weight - - Height - - Body Mass Index - - documented in this encounter Patient Instructions * Patient Instructions* Flaquito Davila RN - 03/14/2024 12:30 PM EST Today you received your monthly B12 injection. You are to return Friday 04/14 at 1:30. Please call with any questions or concerns. documented in this encounter Nursing Notes * Flaquito Davila RN - 03/14/2024 12:30 PM EST Pt brought back to infusion area, VS obtained. No complaints at this time. Pt received his monthly B12 injection IM in left deltoid, site benign. Pt aware of next appt, calendar given. Pt has back surgery scheduled on 04/04, pt told to call if he is unable to make his next injection on 04/14 to reschedule. Pt told to call with any questions or concerns. documented in this encounter Plan of Treatment Upcoming Encounters Date Type Department Care Team (Late st Contact Info) Description 04/14/2024 1:30 PM EST Infusion [facility] [address] [place] [address] 05/12/2024 2:00 PM EDT Infusion [address] [address] 05/24/2024 10:30 AM EDT Follow-Up [facility] [address] [place] [phone] Grayson Baltazar MD [address] [place] [phone] 06/09/2024 12:30 PM EDT Infusion [facility] Infusion [address] [address] 07/05/2024 11:30 AM EDT Follow-Up [facility] [address] [place] [address] Partha Trevino MD [address] [place] [address] 07/05/2024 12:00 PM EDT Infusion [address] [address] 01/11/2025 9:30 AM EST Follow-Up [facility] [address] [place] [phone] Grayson Baltazar MD [address] [place] [address] documented as of this encounter Visit Diagnoses Diagnosis Vitamin B12 deficiency- Primary Other B-complex deficiencies documented in this encounter Administered Medications Inactive Administered Medications - up to 3 most recent administrations Medication Order MAR Action Action Date Dose Rate Site cyanocobalamin (VITAMIN B12) injection 1,000 mcg 1,000 mcg, intramuscular, Once, On Wed03/14/24 at 1230, 1 doseIndications:Vitamin B12 deficiency Pump Refill 03/14/2024 12:39 PM EST 1,000 mcg Left Deltoid documented in this encounter Care Teams Map Clerk Relationship Specialty Start Date End Date Javi Mcginnis MD [address] [place] [id number] PCP - General 03/08/17 documented as of this encounter
--- OUTSIDE RECORDS SUMMARY | 2024-04-04 14:01 | XMS_ITS | Clinical Summary ---
Author Organization [facility] Address [address] [place] [address] Care Team Providers Care Child Welfare Manager Name Role Phone Unavailable Primary Care Provider Unavailabl e Immunizations Name Administration Dates Next Due Td (adult), adsorbed 09/05/1998 Social History Tobacco Use Types Packs/Day Years Used Date Smoking Tobacco: Never Assessed Sex and Gender Information Value Date Recorded Sex Assigned at Not on file Legal Sex Male 1:20 AM EDT Gender Identity Not on file Sexual Orientation Not on file Plan of Treatment Health Maintenance Due Date Last Done Comments Pneumococcal 50+ years (1 of 1 - PCV) 1992 Zoster (Shingrix) (1 of 2) 1992 DTaP/Tdap/Td (1 - Tdap) 09/06/1998 09/05/1998 RSV (1 - 1-dose 75+ series) 2017 COVID-19 Vaccine (2023-2 5 season) 2023 Influenza (#1) 2023 HPV Vaccine Aged Out No longer eligi ble based on patient's age to complete this topic Hep A Aged Out No longer eligi ble based on patient's age to complete this topic Hep B Aged Out No longer eligi ble based on patient's age to complete this topic Hib Aged Out No longer eligi ble based on patient's age to complete this topic Meningococcal ACWY Aged Out No longer eligible based on patient's age to complete this topic Zoster (Zostavax) Discontinued
--- OUTSIDE RECORDS SUMMARY | 2024-04-04 14:01 | XMS_ITS | Continuity of Care Document ---
Author Organization [facility] Address [address] [place] [address] Phone Care Team Providers Care Day Care Attendant Name Role Phone Unavailable Unavailable Unavailable Allergies, Adverse Reactions, Alerts Substance Reaction Status Criticality No Known Allergies Active No Inform ation Medications Medication Instructions Dosage Effective Dates (start - stop) Status Comments clindamycin 300 mg capsule take 1 capsule by oral route every 6 hours 300 MG - Active ibuprofen 800 mg tablet take 1 tablet by oral route 3 times every day with food 800 MG - Active Procedures Procedure Date Resin-Based Composite-Three Surfaces, Po sterior Limited Oral Evaluation-Problem Focused Intraoral-Periapical First Film 014 Advance Directives Directive Yes / No Effective Date File Name No Information Encounters Encounter Description Practice Location Reason(s) For Visit Diagnoses Date Provider Providers Copied on Encounter tammy [facility], [address] [place] [address],[address], [place], [place], [id number], tel:[phone] [facility] 4 No Information tammy [facility], [address] [place] [address],[address], [place], [place], [id number], tel:[phone] [facility] 4 No Information Family History Family Member Type Diagnosis Age At Onset No Information Payers Payer name Insurance type Covered green party ID Jacky villavicencio(s) [employer] [id number] Social History Type Description Quantity Date Captured Comments Alcohol Use Details Unknown Caffeine Use Details Unknown Tobacco Use Status No Information Smoking Status No Information Sex Male Chief Complaint And Reason For Visit No Information Reason For Referral Reason For Referral No Information Plan Of Treatment Date Type Action Status Goal CT-Colonography. Due on due Goal FIT-DNA. Due on due Goal Unhealthy drug use screening . Due on due Goal Zoster vaccine (). Due on due Goal FOBT. Due on due Goal Hepatitis C Screening. Due o n due Goal Document SOGI Information. D ue on due Goal Lipid panel. Due on 014 due Goal Td vaccine. Due on 14 due Goal Zoster vaccine. Due on due Goal Colonoscopy. Due on 014 due Goal Influenza vaccine. Due on due Goal APE. Due on due Goal Pneumococcal vaccine. Due on due History Of Present Illness Encounter Date Complaint History Of Prese nt Illness No Information Functional Status Date Functional Assessmen t No Information Instructions Date Instruction Additional Infor mation No Information Assessments Type Assessment Date No Information Patient Care Teams Name Effective Dates (start - stop) Status Members No Information
--- OUTSIDE RECORDS SUMMARY | 2024-04-04 14:01 | XMS_ITS | Clinical Summary ---
Author Organization [facility], Address [address] [place] [address] Phone Care Team Providers Care Donkey Ride Operator Name Role Phone Javi Mcginnis MD Primary Care Provider [phone] Allergies Active Allergy Reactions Criticality Noted Date Comments Levofloxacin 09/19/2020 Medications finasteride (PROSCAR) 5 MG tablet Take 5 mg by mouth 1 (one) time each day Do not crush, chew, or split. Active atenolol (TENORMIN) 25 MG tablet Take 25 mg by mouth 1 (one) time each day Active losartan (COZAAR) 50 MG tablet Take 50 mg by mouth 1 (one) time each day Active tamsulosin (Flomax) 0.4 MG 24 hr capsule Take 0.4 mg by mouth 1 (one) time each day Active saccharomyces boulardii (FLORASTOR) 250 MG capsule Take 250 mg by mouth in the morning and 250 mg in the evening. Active Active Problems Problem Noted Date Diagnosed Date Chronic low back pain 09/19/2020 Social History Tobacco Use Types Packs/Day Years Used Date Smoking Tobacco: Never Assessed Sex and Gender Information Value Date Recorded Sex Assigned at Not on file Legal Sex Male 12:22 PM EDT Gender Identity Not on file Sexual Orientation Not on file Last Filed Vital Signs Vital Sign Reading Time Taken Comments Blood Pressure 183/65 10/08/2021 10:55 AM EDT Pulse 48 10/08/2021 10:55 AM EDT Temperature 36.2 ??C (97.1 ??F) 10/08/2021 10:55 AM E DT Respiratory Rate - - Oxygen Saturation - - Inhaled Oxygen Concentration - - Weight - - Height - - Body Mass Index - - Plan of Treatment Health Maintenance Due Date Last Done Comments Pneumococcal Vaccine: 65+ Ye ars (1 of 1 - PCV) 09/29/2007 Influenza Vaccine (#1) 2023 Hepatitis B Vaccine Aged Out No longe r eligible based on patient's age to complete this topic Insurance [facility] MEDICAID [place] Care Teams Donkey Ride Operator Relationship Specialty Start Date End Date Javi Mcginnis MD [address] [place] [address] [place] [address] PCP - General Family Medicine 09/19/20
--- OUTSIDE RECORDS SUMMARY | 2024-04-04 14:01 | XMS_ITS | Referral Summary ---
Author Organization [facility] Address [address] [place] [address] Care Team Providers Care Geodetic Engineer Name Role Phone Javi Mcginnis MD Primary Care Provider [phone]- [phone] Encounters Date Type Department Care Team Description 03/14/2024 12:30 PM EST Infusion [address] [address] Flaquito Davila, RN Vitamin B12 deficiency (Primary Dx) 02/18/2024 2:00 PM EST Infusion [address] [address] Flaquito Davila, RN Vitamin B12 deficiency (Primary Dx) 02/07/2024 2:00 PM EST Evaluation [facility] Occupational Therapy Department [address] [place] [phone] Rachana Yun, OT 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) 02/01/2024 10:45 AM EST Treatment [facility] Occupational Therapy Department [address] [place] [phone] Rachana Yun, OT 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) 01/25/2024 10:45 AM EST Treatment [facility] Occupational Therapy Department [address] [place] [phone] Rachana Yun, OT 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) 01/20/2024 2:45 PM EST Treatment [facility] Occupational Therapy Department [address] [place] [address] Rachana Yun OT 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) 01/19/2024 2:30 PM EST Infusion [address] [address] Hilary Wong, EDSTINEY Vitamin B12 deficiency (Primary Dx) 01/19/2024 2:00 PM EST Follow-Up [address] [address] Partha Trevino MD Thrombocytosis, unspecified; Vitamin B12 deficiency 01/18/2024 10:45 AM EST Treatment [facility] Occupational Therapy Department [address] [place] [address] Rachana Yun OT 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) 01/14/2024 3:15 PM EST Lab [facility] Draw Site Department [address] [place] [address] Personal history of Elvin cell carcinoma 01/14/[address] [address] Telephone Intake, Staff 01/13/2024 Orders Only [address] [address] Partha Trevino MD Personal history of Elvin cell carcinoma (Primary Dx) 01/12/2024 1:15 PM EST Follow-Up [facility] Urology [address] [place] [phone] Grayson Baltazar MD Stricture of urethral meatus in male, unspecified stricture type 01/11/2024 10:00 AM EST Treatment [facility] Occupational Therapy Department [address] [place] [address] Rachana Yun OT 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) 01/06/2024 9:30 AM EST Treatment [facility] Occupational Therapy Department [address] [place] [address] Rachana Yun OT 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) 01/04/2024 9:00 AM EST Treatment [facility] Occupational Therapy Department [address] [place] [address] Rachana Yun OT 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) from Last 3 Months Allergies Active Allergy Reactions Criticality Noted Date Comments Levofloxacin Tremor 09/19/2020 Medications losartan (COZAAR) 50 mg tablet Take 50 mg by mouth 2 (two) times a day. Active omeprazole 20 mg tablet,disinteg rat, delay rel Take 1 capsule by mouth daily as needed. 01/20/2021 Active cyanocobalamin (vitamin B-12) 1,000 mcg tablet Take 1,000 mcg by mouth every night. Active CYANOCOBALAMIN, VITAMIN B-12, INJECTION Inject as directed every 30 days. Active ibuprofen (MOTRIN) 400 mg tablet Take 400 mg by mouth every 6 hours as needed for pain. Active furosemide (LASIX) 20 mg tablet Take 20 mg by mouth as needed. Active tamsulosin (FLOMAX) 0.4 mg capsule Take 1 capsule by mouth once daily 90 capsule 3 12/14/2023 Active finasteride (PROSCAR) 5 mg tablet Take 1 tablet by mouth once daily 90 tablet 3 01/03/2024 Active Active Problems Problem Noted Date Diagnosed Date History of actinic keratoses 12/14/2022 History of skin cancer 12/14/2022 Neuropathy 12/14/2022 History of carpal tunnel release 12/14/2022 Vitamin B12 deficiency 12/03/2022 Resolved Problems Problem Noted Date Diagnosed Date Resolved Date Carpal tunnel syndrome of right wrist 12/14/2022 11/04/2023 Immunizations Name Administration Dates Next Due Tetanus and Diphtheria Toxoi ds, Adsorbed, Preservative Free (2 Lf of Tetanus Toxoid and 2 Lf of Diphtheria Toxoid) 09/05/1998 Social History Tobacco Use Types Packs/Day Years Used Date Smoking Tobacco: Former Cigarettes Smokeless Tobacco: Never Tobacco Cessation:Counseling Given: Not Answered Alcohol Use Standard Drinks/Week Comments Not Currently [...] EST Inhaled Oxygen Concentration - - Weight 98.9 kg (218 lb) 01/19/2024 1:55 PM EST Height 177.8 cm (5' 10 ) 10/26/2023 10:02 AM EDT Body Mass Index 31.28 10/26/2023 10:02 AM EDT Plan of Treatment Upcoming Encounters Date Type Department Care Team (Late st Contact Info) Description 04/14/2024 1:30 PM EST Infusion [facility] Infusion [address] [address] 05/12/2024 2:00 PM EDT Infusion [address] [address] 05/24/2024 10:30 AM EDT Follow-Up [facility] Urology [address] [place] [phone] Grayson Baltazar MD [address] [place] [address] 06/09/2024 12:30 PM EDT Infusion [facility] Infusion [address] [address] 07/05/2024 11:30 AM EDT Follow-Up [facility] [address] [place] [address] Partha Trevino MD [address] [place] [address] 07/05/2024 12:00 PM EDT Infusion [facility] [address] [place] [address] 01/11/2025 9:30 AM EST Follow-Up [facility] Urology [address] [place] [phone] Grayson Baltazar MD [address] [place] [address] Procedures * Due to [facility] law, this organization might not be sharing negative HIV tests. Procedure Name Priority Date/Time Associated Diagnosis Comments CBC AUTO DIFFERENTIAL STAT 01/14/2024 2:29 PM EST Personal history of Spencer cell carcinoma COMPREHENSIVE METABOLIC PANEL STAT 01/14/2024 2:29 PM EST Personal history of Elvin cell carcinoma POCT URINALYSIS DIPSTICK, NON-INTERFACED Routine 01/12/2024 1:24 PM EST Stricture of urethral meatus in male, unspecified stricture type from Last 3 Months Results * Due to [place] state law, this organization might not be sharing negative HIV tests. * (ABNORMAL) CBC Auto Differential (Once) (01/14/2024 2:29 PM EST) WBC 7.3 4.8 - 10.8 10*3/uL 01/14/2024 2:36 PM EST [facility] RBC 4.46(L) 4.70 - 6.10 10*6/uL 01/14/2024 2:36 PM EST [facility] Hemoglobin 14.3 13.7 - 16.5 g/dL 01/14/2024 2:36 PM EST [facility] Hematocrit 40.6 40.5 - 48.5 % 01/14/2024 2:36 PM EST [facility] MCV 91.0 80.0 - 94.0 fL 01/14/2024 2:36 PM EST [facility] MCH 32.1 26.0 - 34.0 pg 01/14/2024 2:36 PM EST [facility] MCHC 35.2 31.0 - 36.0 g/dL 01/14/2024 2:36 PM EST [facility] RDW 13.7 12.0 - 15.0 % 01/14/2024 2:36 PM EST [facility] RDW Standard Deviation 45.5(H) 35.1 - 43.9 fL 01/14/2024 2:36 PM EST [facility] Platelets 608(H) 140 - 440 10*3/uL 01/14/2024 2:36 PM EST [facility] MPV 8.4(L) 9.4 - 12.4 fL 01/14/2024 2:36 PM EST [facility] Neutrophil % 65.8 50.0 - 75.0 % 01/14/2024 2:36 PM EST [facility] Immature Grans % 0.3 0.0 - 0.9 % 01/14/2024 2:36 PM EST [facility] Lymphocyte % 22.3 20.0 - 44.0 % 01/14/2024 2:36 PM EST [facility] Monocyte % 7.2 0.0 - 14.0 % 01/14/2024 2:36 PM EST [facility] Eosinophil % 3.7 0.0 - 5.0 % 01/14/2024 2:36 PM EST [facility] Basophil % 0.7 0.0 - 2.0 % 01/14/2024 2:36 PM EST [facility] Neutrophil # 4.79 1.80 - 7.70 10*3/uL 01/14/2024 2:36 PM EST [facility] Immature Grans # <0.03 0.00 - 0.03 10*3/uL 01/14/2024 2:36 PM EST [facility] Lymphocyte # 1.60 1.00 - 4.75 10*3/uL 01/14/2024 2:36 PM EST [facility] Monocyte # 0.50 0.00 - 6.00 10*3/uL 01/14/2024 2:36 PM EST [facility] Eosinophil # 0.30 0.00 - 0.80 10*3/uL 01/14/2024 2:36 PM EST [facility] Basophil # 0.10 0.00 - 0.20 10*3/uL 01/14/2024 2:36 PM EST [facility] nRBC % 0.0 0 - 0 /100 WBCs 01/14/2024 2:36 PM EST [facility] nRBC # <0.01 0.00 - 0.13 10*3/uL 01/14/2024 2:36 PM EST [facility] Blood Structure of peripheral vein / Unknown Venipuncture / Unknown 01/14/2024 2:29 PM EST 01/14/2024 2:32 PM EST us Partha Trevino MD LAB BLOOD ORDERABLES Final Resul t [facility] [address] [place] [address] [address] [place] [address], [place] [phone] * (ABNORMAL) Comprehensive Metabolic Panel (Once) (01/14/2024 2:29 PM EST) NA 139 136 - 145 mmol/L 01/14/2024 3:02 PM EST [facility] K 4.3 3.5 - 5.1 mmol/L 01/14/2024 3:02 PM EST [facility] Cl 104 98 - 109 mmol/L 01/14/2024 3:02 PM EST [facility] CO2 24 22 - 32 mmol/L 01/14/2024 3:02 PM EST [facility] Anion Gap 15 >=0 01/14/2024 3:02 PM EST [facility] Glucose 93 60 - 99 mg/dL 01/14/2024 3:02 PM EST [facility] Creatinine 0.91 0.50 - 1.12 mg/dL 01/14/2024 3:02 PM [facility] Calcium 9.3 8.4 - 10.4 mg/dL 01/14/2024 3:02 PM [facility] Total Protein 7.7 6.6 - 8.7 g/dL 01/14/2024 3:02 PM [facility] Albumin 4.5 3.5 - 5.0 g/dL 01/14/2024 3:02 PM [facility] Bilirubin, Total 1.0 0.2 - 1.2 mg/dL 01/14/2024 3:02 PM [facility] Alkaline Phosphatase 83 40 - 129 U/L 01/14/2024 3:02 PM [facility] AST 25 0 - 40 U/L 01/14/2024 3:02 PM [facility] ALT 19 <=41 U/L 01/14/2024 3:02 PM [facility] BUN 16 8 - 23 mg/dL 01/14/2024 3:02 PM [facility] eGFR 85 >=60 mL/min/1. 73m2 01/14/2024 3:02 PM [facility] Comment:The estimated glomer ular filtration rate (eGFR) is calculated using a new formula developed by the NKF-ASN task force to eliminate race-based correction factors. The new formula uses serum/plasma creatinine, age, and gender to determine eGFR. A value below 60mls/min might indicate kidney disease and will be flagged. For additional information, see Abel et al, Am J Kidney Dis. 2021;79(2):268- 288, A Unifying Approach for GFR estimation: Recommendations of the NKF-ASN Task Force on Reassessing the Inclusion of Race in Diagnosing Kidney Disease . Globulin, Total 3.2 2.1 - 4.2 g/dL 01/14/2024 3:02 PM [facility] A/G Ratio 1.4(L) 1.5 - 3.0 01/14/2024 3:02 PM [facility] Blood Structure of peripheral vein / Unknown Venipuncture / Unknown 01/14/2024 2:29 PM EST 01/14/2024 2:32 PM EST us Partha Trevino MD LAB BLOOD ORDERABLES Final Resul t [facility] [address] [facility] [address] [place] [address], [place] [phone] * POCT urinalysis dipstick (01/12/2024 1:24 PM EST) Color, UA Yellow Yellow Clarity, UA Clear Clear Glucose, UA Negative Negative mg/dL Bilirubin, UA Negative Negative Ketones, UA Negative Negative mg/dL Spec Grav, UA 1.005 1.005 - 1.030 Blood, UA Negative Negative pH, UA 6.5 5.0 - 8.5 Protein, UA Negative Negative mg/dL Urobilinogen, UA 0.2 0.2 - 1.0 E.U. /dL mg/dL Nitrite, UA Negative Negative Leukocytes, UA Negative Negative Urine 01/12/2024 1:24 PM EST us Grayson Baltazar MD POINT OF CARE TEST ORDERABLE S Final Result from Last 3 Months Insurance [facility] CARE Advance Directives Documents on File Type Date Recorded Patient Fleet Operations Manager Expl anation Health Care Proxy 10/27/2021 Health Care Proxy 10/27/2021 Health Care Proxy 10/27/2021 Health Care Proxy 10/27/2021 Health Care Proxy 10/27/2021 Health Care Proxy 10/27/2021 Health Care Proxy 10/27/2021 Health Care Proxy 10/27/2021 Health Care Proxy 10/27/2021 Health Care Proxy 10/27/2021 Health Care Proxy 10/27/2021 Health Care Proxy 10/27/2021 Health Care Proxy 10/27/2021 Health Care Proxy 10/27/2021 * Full Code (Latest Code Status on File) Date Activated Date Inactivated Comments 10/11/2023 8:00 AM 10/11/2023 1:48 PM Healthcare Agents on File Name Relationship Healthcare Agent Relationship Communication Rachel Collier Daughter Health Care Agent Care Teams Geodetic Engineer Relationship Specialty Start Date End Date Javi Mcginnis MD [address] [place] [address] PCP - General 03/08/17
--- OUTSIDE RECORDS SUMMARY | 2024-04-04 14:01 | XMS_ITS | Encounter Summary ---
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, including shoulder (HCC) (Primary Dx) Social History Tobacco Use Types Packs/Day Years Used Date Smoking Tobacco: Former Smokeless Tobacco: Never Sex and Gender Information Value Date Recorded Sex Assigned at Male 12/14/2022 10:20 AM EDT Legal Sex Male 3:39 PM EDT Gender Identity Not on file Sexual Orientation Not on file documented as of this encounter Plan of Treatment Upcoming Encounters Date Type Department Care Team (Late st Contact Info) Description 04/14/2024 1:30 PM EST Infusion [facility] Infusion Center [address] [place] [address] 05/12/2024 2:00 PM EDT Infusion [address] [address] 05/24/2024 10:30 AM EDT Follow-Up [facility] Urology [address] [place] [phone] Grayson Baltazar MD [address] [place] [address] 06/09/2024 12:30 PM EDT Infusion [facility] Infusion [address] [address] 07/05/2024 11:30 AM EDT Follow-Up [facility] Cancer Center [address] [place] [address] Partha Trevino MD [address] [place] [address] 07/05/2024 12:00 PM EDT Infusion [address] [address] 01/11/2025 9:30 AM EST Follow-Up [facility] Urology [address] [place] [phone] Grayson Baltazar MD [address] [place] [address] documented as of this encounter Results * Due to [place] state law, this organization might not be sharing negative HIV tests. * (ABNORMAL) CBC Auto Differential (07/14/2023 11:14 AM EDT) WBC 7.0 4.8 - 10.8 10*3/uL 07/14/2023 11:56 AM EDT [facility] RBC 4.40(L) 4.70 - 6.10 10*6/uL 07/14/2023 11:56 AM EDT [facility] Hemoglobin 14.3 13.7 - 16.5 g/dL 07/14/2023 11:56 AM EDT [facility] Hematocrit 40.6 40.5 - 48.5 % 07/14/2023 11:56 AM EDT [facility] MCV 92.3 80.0 - 94.0 fL 07/14/2023 11:56 AM EDT [facility] MCH 32.5 26.0 - 34.0 pg 07/14/2023 11:56 AM EDT [facility] MCHC 35.2 31.0 - 36.0 g/dL 07/14/2023 11:56 AM EDT [facility] RDW 14.0 12.0 - 15.0 % 07/14/2023 11:56 AM EDT [facility] RDW Standard Deviation 47.3(H) 35.1 - 43.9 fL 07/14/2023 11:56 AM EDT [facility] Platelets 569(H) 140 - 440 10*3/uL 07/14/2023 11:56 AM EDT [facility] MPV 9.0(L) 9.4 - 12.4 fL 07/14/2023 11:56 AM EDT [facility] Neutrophil % 61.2 50.0 - 75.0 % 07/14/2023 11:56 AM EDT [facility] Immature Grans % 0.1 0.0 - 0.9 % 07/14/2023 11:56 AM EDT [facility] Lymphocyte % 24.7 20.0 - 44.0 % 07/14/2023 11:56 AM EDT [facility] Monocyte % 7.9 0.0 - 14.0 % 07/14/2023 11:56 AM EDT [facility] Eosinophil % 5.4(H) 0.0 - 5.0 % 07/14/2023 11:56 AM EDT [facility] Basophil % 0.7 0.0 - 2.0 % 07/14/2023 11:56 AM EDT [facility] Neutrophil # 4.27 1.80 - 7.70 10*3/uL 07/14/2023 11:56 AM EDT [facility] Immature Grans # <0.03 0.00 - 0.03 10*3/uL 07/14/2023 11:56 AM EDT [facility] Lymphocyte # 1.70 1.00 - 4.75 10*3/uL 07/14/2023 11:56 AM EDT [facility] Monocyte # 0.60 0.00 - 6.00 10*3/uL 07/14/2023 11:56 AM EDT [facility] Eosinophil # 0.40 0.00 - 0.80 10*3/uL 07/14/2023 11:56 AM EDT [facility] Basophil # 0.10 0.00 - 0.20 10*3/uL 07/14/2023 11:56 AM EDT [facility] nRBC % 0.0 0 - 0 /100 WBCs 07/14/2023 11:56 AM EDT [facility] nRBC # <0.01 0.00 - 0.13 10*3/uL 07/14/2023 11:56 AM EDT [facility] Blood Structure of peripheral vein / Unknown Venipuncture / Unknown 07/14/2023 11:14 AM EDT 07/14/2023 11:52 AM EDT us Partha Trevino MD LAB BLOOD ORDERABLES Final Resul t Performing Organization Address City/[facility]/ZIP Co de Phone Number [facility] [address] [address], [place] [phone] * Vitamin B12 (07/14/2023 11:14 AM EDT) Vitamin B12 677 232 - 1,245 pg/mL 07/14/2023 12:36 PM EDT [facility] Blood Structure of peripheral vein / Unknown Venipuncture / Unknown 07/14/2023 11:14 AM EDT 07/14/2023 11:53 AM EDT us Partha Trevino MD LAB BLOOD ORDERABLES Final Resul t Performing Organization Address City/[facility]/ZIP Co de Phone Number [facility] [address] [address], [place] [phone] documented in this encounter Visit Diagnoses Diagnosis 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
--- OUTSIDE RECORDS SUMMARY | 2024-04-04 14:01 | XMS_ITS | Encounter Summary ---
Author Organization [facility] Address [address] [place] [address] Care Team Providers Care Tank Crewmember Name Role Phone Javi Mcginnis MD Primary Care Provider [phone]- [phone] Encounter Details Date Type Department Care Team (Late Contact Info) Description 07/21/2021 Telephone [facility] [address] [place], [place] [id number] Kirsten Stark RN Social History Tobacco Use Types Packs/Day Years Used Date Smoking Tobacco: Former Smokeless Tobacco: Never Sex and Gender Information Value Date Recorded Sex Assigned at Male 12/14/2022 10:20 AM EDT Legal Sex Male 3:39 PM EDT Gender Identity Not on file Sexual Orientation Not on file documented as of this encounter Miscellaneous Notes * Telephone Encounter - Kirsten Stark RN - 07/21/2021 9:10 AM EDT Called to screen for COVID treatment after receiving a referral from Dr. Javi Mcginnis. Pt confirmed COVID positive, symptom onset 07/14, positive test 07/14. Pt ordered and received Paxlovid from PCP on 07/15, finishing course of antivirals. Because pt has received COVID treatment in the form of Paxlovid, they are ineligible for IV Bebtelovimab except in the case of Paxlovid rebound syndrome. Pt aware, will call CTC if symptoms return. No further action warranted at this time. documented in this encounter Plan of Treatment Upcoming Encounters Date Type Department Care Team (Late st Contact Info) Description 04/14/2024 1:30 PM EST Infusion [facility] Infusion [address] [address] 05/12/2024 2:00 PM EDT Infusion [address] [address] 05/24/2024 10:30 AM EDT Follow-Up [facility] Urology [address] [place] [phone] Grayson Baltazar MD [address] [place] [address] 06/09/2024 12:30 PM EDT Infusion [address] [address] 07/05/2024 11:30 AM EDT Follow-Up [address] [address] Partha Trevino MD [address] [place] [address] 07/05/2024 12:00 PM EDT Infusion [address] [address] 01/11/2025 9:30 AM EST Follow-Up [facility] Urology [address] [place] [phone] Grayson Baltazar MD [address] [place] [address] documented as of this encounter Visit Diagnoses Not on filedocumented in this encounter Additional Health Concerns Infection Onset Date Last Indicated Resolved Time COVID-19 - Suspected infection 11/19/2020 11/19/2020 11/19/2022 10:35 PM EDT COVID-19 - Suspected infection 04/01/2021 04/01/2021 11/20/2022 10:34 PM EDT documented as of this encounter Care Teams Tank Crewmember Relationship Specialty Start Date End Date Javi Mcginnis MD [address] [place] [address] PCP - General 03/08/17 documented as of this encounter
--- OUTSIDE RECORDS SUMMARY | 2024-04-04 14:01 | XMS_ITS | Encounter Summary ---
Author Organization [facility] Address [address] [place] [address] Care Team Providers Care Canoe Inspector Final Name Role Phone Javi Mcginnis MD Primary Care Provider [phone]- [phone] Reason for Visit * Reason Onset Date Comments Actionable Finding 04/23/2023 Encounter Details Date Type Department Care Team (Late st Contact Info) Description 04/23/2023 Telephone [facility] - Actionable Findings [address] [facility] [address] [place] [address] Melany Lopez RN Actionable Finding Social History Tobacco Use Types Packs/Day Years Used Date Smoking Tobacco: Former Smokeless Tobacco: Never Sex and Gender Information Value Date Recorded Sex Assigned at Male 12/14/2022 10:20 AM EDT Legal Sex Male 3:39 PM EDT Gender Identity Not on file Sexual Orientation Not on file documented as of this encounter Miscellaneous Notes * Telephone Encounter - Melany Lopez RN - 04/23/2023 9:03 AM EST Actionable finding review of MRI Date of scan: 04/06/23 Location of scan: [facility] Actionable Findings performed a review of radiology result(s). Doreen Apodaca RNboot lace cutter machine at [phone] documented in this encounter Plan of Treatment Upcoming Encounters Date Type Department Care Team (Late st Contact Info) Description 04/14/2024 1:30 PM EST Infusion [facility] [address] [place] [address] 05/12/2024 2:00 PM EDT Infusion [facility] [address] [address] 05/24/2024 10:30 AM EDT Follow-Up [facility] Urology [address] [place] [phone] Grayson Baltazar MD [address] [place] [address] 06/09/2024 12:30 PM EDT Infusion [facility] [address] [address] 07/05/2024 11:30 AM EDT Follow-Up [facility] [address] [place] [address] Partha Trevino MD [address] [place] [address] 07/05/2024 12:00 PM EDT Infusion [address] [address] 01/11/2025 9:30 AM EST Follow-Up [facility] Urology [address] [place] [phone] Grayson Baltazar MD [address] [place] [address] documented as of this encounter Visit Diagnoses Not on filedocumented in this encounter Care Teams Canoe Inspector Final Relationship Specialty Start Date End Date Javi Mcginnis MD [address] [place] [address] PCP - General 03/08/17 documented as of this encounter
--- OUTSIDE RECORDS SUMMARY | 2024-04-04 14:01 | XMS_ITS | Clinical Summary ---
Author Organization [facility] Address [address] [place] [address] Care Team Providers Care Area Director Name Role Phone Javi Mcginnis MD Primary Care Provider [phone]- [phone] Allergies Active Allergy Reactions Criticality Noted Date [...] tunnel syndrome of right wrist 12/14/2022 11/04/2023 Encounters Date Type Department Care Team Description 03/14/2024 12:[address] [facility] [address] [place] [address] Flaquito Davila, RN Vitamin B12 deficiency (Primary Dx) 02/18/2024 2:00 PM EST Infusion [address] [address] Flaquito Davila, RN Vitamin B12 deficiency (Primary Dx) 02/07/2024 2:00 PM EST Evaluation [facility] Occupational Therapy Department [address] [place] [address] Rachana Yun, OT 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) 02/01/2024 10:45 AM EST Treatment [facility] Occupational Therapy Department [address] [place] [address] Rachana Yun, OT 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) 01/25/2024 10:45 AM EST Treatment [facility] Occupational Therapy Department [address] [place] [address] Rachana Yun, OT 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) 01/20/2024 2:45 PM EST Treatment [facility] Occupational Therapy Department [address] [place] [address] Cathleen Yunis, OT 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) 01/19/2024 2:30 PM EST Infusion [address] [address] Hilary Wong RN Vitamin B12 deficiency (Primary Dx) 01/19/2024 2:00 PM EST Follow-Up [facility] [address] [place] [address] Partha Trevino MD Thrombocytosis, unspecified; Vitamin B12 deficiency 01/18/2024 10:45 AM EST Treatment [facility] Occupational Therapy Department [address] [place] [address] Rachana Yun OT 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) 01/14/2024 3:15 PM EST Lab [facility] Draw Site Department [address] [place] [address] Personal history of Elvin cell carcinoma 01/14/2024 Telephone [facility] [address] [place] [address] Telephone Intake, Staff 01/13/2024 Orders Only [facility] [address] [place] [address] Partha Trevino MD Personal history of [place] cell carcinoma (Primary Dx) 01/12/2024 1:15 PM EST Follow-Up [facility] Urology [address] [place] [phone] Grayson Baltazar MD Stricture of urethral meatus in male, unspecified stricture type 01/11/2024 10:00 AM EST Treatment [facility] Occupational Therapy Department [address] [place] [address] Rachana Yun OT 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) 01/06/2024 9:30 AM EST Treatment [facility] Occupational Therapy Department [address] [place] [address] Rachana Yun OT 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) 01/04/2024 9:00 AM EST Treatment [facility] Occupational Therapy Department [address] [place] [address] Rachana Yun OT 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) from Last 3 Months Immunizations Name Administration Dates Next Due Tetanus and Diphtheria Toxoi ds, Adsorbed, Preservative Free (2 Lf of Tetanus Toxoid and 2 Lf of Diphtheria Toxoid) 09/05/1998 Family History Medical History Relation Name Comments Breast cancer Mother Breast cancer Sister 1 Breast cancer Sister 2 Breast cancer Sister 3 Relation Name Status Comments Mother Sister 1 Sister 2 Alive Sister 3 Alive Social History Tobacco Use Types Packs/Day Years [...] Info) Description 04/14/2024 1:30 PM EST Infusion [address] [address] 05/12/2024 2:00 PM EDT Infusion [address] [address] 05/24/2024 10:30 AM EDT Follow-Up [facility] Urology [address] [place] [phone] Grayson Baltazar MD [address] [place] [address] 06/09/2024 12:30 PM EDT Infusion [address] [address] 07/05/2024 11:30 AM EDT Follow-Up [facility] [address] [place] [address] Partha Trevino MD [address] [place] [address] 07/05/2024 12:00 PM EDT Infusion [facility] [place] [address] [place] [address] 01/11/2025 9:30 AM EST Follow-Up [facility] Urology [address] [place] [phone] Grayson Baltazar MD [address] [place] [address] Health Maintenance Due Date Last Done Comments COVID-19 Vaccine (#1) 09/29/1945 Pneumococcal Vaccine: 65+ Years (1 of 2 - PCV) 1948 Zoster Vaccines (1 of 2) 1961 DTaP,Tdap,and Td Vaccines (1 - Tdap) 09/06/1998 09/05/1998 RSV Vaccine (60+ years old and patients) (1 - 1-dose 75+ series) 2017 Influenza Vaccine (#1) 2023 Alcohol/Substance Use Screening 03/01/2024 Depression Screening and Follow-Up 03/01/2024 12/23/2022 Health Care Proxy Review 03/01/2024 Social Drivers of Health Annual Screening 03/01/2024 Basic Metabolic Panel 01/13/2025 01/14/2024 , 11/09/2023, 09/07/2023, Additional history exists Hepatitis B Vaccines Aged Out No long er eligible based on patient's age to complete this topic Procedures * Due to [place] state law, this organization might not be sharing negative HIV tests. Procedure Name Priority Date/Time Associated Diagnosis Comments CBC AUTO DIFFERENTIAL STAT 01/14/2024 2:29 PM EST Personal history of Elvin cell carcinoma COMPREHENSIVE METABOLIC PANEL STAT 01/14/2024 2:29 PM EST Personal history of Elvin cell carcinoma POCT URINALYSIS DIPSTICK, NON-INTERFACED Routine 01/12/2024 1:24 PM EST Stricture of urethral meatus in male, unspecified stricture type from Last 3 Months Results * Due to [place] state law, this organization might not be sharing negative HIV tests. * (ABNORMAL) CBC Auto Differential (Once) (01/14/2024 2:29 PM EST) WBC 7.3 4.8 - 10.8 10*3/uL 01/14/2024 2:36 PM EST [facility] RBC 4.46(L) 4.70 - 6.10 10*6/uL 01/14/2024 2:36 PM EST [facility] Hemoglobin 14.3 13.7 - 16.5 g/dL 01/14/2024 2:36 PM EST [facility] Hematocrit 40.6 40.5 - 48.5 % 01/14/2024 2:36 PM EST [facility] MCV 91.0 80.0 - 94.0 fL 01/14/2024 2:36 PM EST [facility] MCH 32.1 26.0 - 34.0 pg 01/14/2024 2:36 PM EST [facility] MCHC 35.2 31.0 - 36.0 g/dL 01/14/2024 2:36 PM EST [facility] RDW 13.7 12.0 - 15.0 % 01/14/2024 2:36 PM EST [facility] RDW Standard Deviation 45.5(H) 35.1 - 43.9 fL 01/14/2024 2:36 PM EST [facility] Platelets 608(H) 140 - 440 10*3/uL 01/14/2024 2:36 PM EST [facility] MPV 8.4(L) 9.4 - 12.4 fL 01/14/2024 2:36 PM EST [facility] Neutrophil % 65.8 50.0 - 75.0 % 01/14/2024 2:36 PM EST [facility] Immature Grans % 0.3 0.0 - 0.9 % 01/14/2024 2:36 PM EST [facility] Lymphocyte % 22.3 20.0 - 44.0 % 01/14/2024 2:36 PM EST [facility] Monocyte % 7.2 0.0 - 14.0 % 01/14/2024 2:36 PM EST [facility] Eosinophil % 3.7 0.0 - 5.0 % 01/14/2024 2:36 PM EST [facility] Basophil % 0.7 0.0 - 2.0 % 01/14/2024 2:36 PM EST [facility] Neutrophil # 4.79 1.80 - 7.70 10*3/uL 01/14/2024 2:36 PM EST [facility] Immature Grans # <0.03 0.00 - 0.03 10*3/uL 01/14/2024 2:36 PM EST [facility] Lymphocyte # 1.60 1.00 - 4.75 10*3/uL 01/14/2024 2:36 PM EST [facility] Monocyte # 0.50 0.00 - 6.00 10*3/uL 01/14/2024 2:36 PM EST [facility] Eosinophil # 0.30 0.00 - 0.80 10*3/uL 01/14/2024 2:36 PM EST [facility] Basophil # 0.10 0.00 - 0.20 10*3/uL 01/14/2024 2:36 PM EST [facility] nRBC % 0.0 0 - 0 /100 WBCs 01/14/2024 2:36 PM EST [facility] nRBC # <0.01 0.00 - 0.13 10*3/uL 01/14/2024 2:36 PM EST [facility] Blood Structure of peripheral vein / Unknown Venipuncture / Unknown 01/14/2024 2:29 PM EST 01/14/2024 2:32 PM EST us Partha Trevino MD LAB BLOOD ORDERABLES Final Resul t [facility] [address] [place] [address], [place] [phone] * (ABNORMAL) Comprehensive Metabolic Panel (Once) (01/14/2024 2:29 PM EST) NA 139 136 - 145 mmol/L 01/14/2024 3:02 PM EST [facility] K 4.3 3.5 - 5.1 mmol/L 01/14/2024 3:02 PM EST [facility] Cl 104 98 - 109 mmol/L 01/14/2024 3:02 PM EST [facility] CO2 24 22 - 32 mmol/L 01/14/2024 3:02 PM EST [facility] Anion Gap 15 >=0 01/14/2024 3:02 PM EST [facility] Glucose 93 60 - 99 mg/dL 01/14/2024 3:02 PM EST [facility] Creatinine 0.91 0.50 - 1.12 mg/dL 01/14/2024 3:02 PM EST [facility] Calcium 9.3 8.4 - 10.4 mg/dL 01/14/2024 3:02 PM EST [facility] Total Protein 7.7 6.6 - 8.7 g/dL 01/14/2024 3:02 PM EST [facility] Albumin 4.5 3.5 - 5.0 g/dL 01/14/2024 3:02 PM EST [facility] Bilirubin, Total 1.0 0.2 - 1.2 mg/dL 01/14/2024 3:02 PM EST [facility] Alkaline Phosphatase 83 40 - 129 U/L 01/14/2024 3:02 PM EST [facility] AST 25 0 - 40 U/L 01/14/2024 3:02 PM EST [facility] ALT 19 <=41 U/L 01/14/2024 3:02 PM EST [facility] BUN 16 8 - 23 mg/dL 01/14/2024 3:02 PM EST [facility] eGFR 85 >=60 mL/min/1. 73m2 01/14/2024 3:02 PM EST [facility] Comment:The estimated glomer ular filtration rate [...] 2.1 - 4.2 g/dL 01/14/2024 3:02 PM EST [facility] A/G Ratio 1.4(L) 1.5 - 3.0 01/14/2024 3:02 PM EST [facility] Blood Structure of peripheral vein / Unknown Venipuncture / Unknown 01/14/2024 2:29 PM EST 01/14/2024 2:32 PM EST us Partha Trevino MD LAB BLOOD ORDERABLES Final Resul t [facility] [address] [facility] [address] [place] [address], * POCT urinalysis dipstick (01/12/2024 1:24 PM [...] Final Result from Last 3 Months Insurance [facility] Advance Directives Documents on File Type Date Recorded Patient Foundation Maker Expl anation Health Care Proxy 10/27/2021 Health [...] Collier Daughter Health Care Agent Care Teams Area Director Relationship Specialty Start Date End Date Javi Mcginnis MD [address] [place] [address] PCP - General 03/08/17
--- OUTSIDE RECORDS SUMMARY | 2024-04-04 14:01 | XMS_ITS | Clinical Summary ---
Author Organization [facility] Address [address] [place] [phone] Care Team Providers Care High School Principal Name Role Phone Javi Mcginnis MD Primary Care Provider [phone] Surgical History Surgery Date Site/Laterality Comments OTHER SURGICAL HISTORY 10/23/2021 PROCEDURE: [place] ARTHRODESIS POSTERIOR INTERBODY 1 NTRSPC LUMBAR; COMMENT: L3-4, L4-5, L5-S1 fusion, Dr. Martin Social History Tobacco Use Types Packs/Day Years Used Date Smoking Tobacco: Never Assessed Sex and Gender Information Value Date Recorded Sex Assigned at Not on file Gender Identity Not on file Sexual Orientation Not on file Obstetrics History Last Filed Vital Signs Vital Sign Reading Time Taken Comments Blood Pressure - - Pulse - - Temperature - - Respiratory Rate - - Oxygen Saturation - - Inhaled Oxygen Concentration - - Weight 101 kg (222 lb) 12/25/2021 3:34 PM EDT Height 177.8 cm (5' 10 ) 11/14/2021 2:04 PM EDT Body Mass Index 31.85 11/14/2021 2:04 PM EDT Plan of Treatment Health Maintenance Due Date Last Done Comments DTaP,Tdap,and Td Vaccines (1 - Tdap) 1961 Zoster Vaccines (1 of 2) 1992 Pneumococcal Vaccine: 65+ Ye ars (1 of 1 - PCV) 09/29/2007 RSV Immunization Patients 60 + Years Old (1 - 1-dose 75+ series) 2017 Cholesterol Screening (Lipid Panel) 02/08/2022 Depression Screening 02/08/2022 Falls Risk Assessment 02/08/2022 Social Influencers of Health Screening 02/08/2022 COVID-19 Vaccine (1 - 2023-2 5 season) 2023 Influenza Vaccine (#1) 2023 HIB Vaccines Aged Out No longer eligi ble based on patient's age to complete this topic HPV Vaccines Aged Out No longer eligi ble based on patient's age to complete this topic Hepatitis A Vaccines Aged Out No long er eligible based on patient's age to complete this topic Hepatitis B Vaccines Aged Out No long er eligible based on patient's age to complete this topic IPV Vaccines Aged Out No longer eligi ble based on patient's age to complete this topic MMR Vaccines Aged Out No longer eligi ble based on patient's age to complete this topic Meningococcal ACWY Vaccine Aged Out N o longer eligible based on patient's age to complete this topic RSV Immunization Patients Un david 20 months Aged Out No longer eligible b ased on patient's age to complete this topic Varicella Vaccines Aged Out No longer eligible based on patient's age to complete this topic Advance Directives Documents on File Type Date Recorded Patient Grocery Manager Expl anation Health Care Decision (hx) 10/23/2021 ALYSSA BERRY DIRECTIVE Care Teams High School Principal Relationship Specialty Start Date End Date Javi Mcginnis MD [address] [place] [address] PCP - General Family Medicine 07/12/20
[2024-04-04] MEDS: 0.9 % Sodium Chloride 1,000 ML 75 ML IVCONT (16:15)
[2024-04-04] MEDS: Ketorolac Tromethamine 15 MG/ML VIAL IVPUSH ×2 (16:20→21:42)
--- NOTE | 2024-04-04 16:39 | PHA.MEDREC ---
Addendum entered by Jayla Horne RPh 04/04/24 16:48: Med rec was reviewed by [facility]. Original Note: Pharmacy Consult ? Medication Reconciliation Pharmacy reviewed med rec done by nursing. Spoke with patient and he confirmed the medications on the med rec matches. Docusate Sodium 100mg is scheduled once every night per the patient. The patient confirmed he took his medications yesterday.
[2024-04-04] MEDS: Acetaminophen 1,000 MG/100 ML PIGGYBACK 400 MG IV (17:41)
[2024-04-04] MEDS: ceFAZolin Sodium/Dextrose,Iso 2 GM/50 ML PIGGYBACK IV (18:19)
[2024-04-04] MEDS: Losartan Potassium 50 MG TABLET PO (21:41)
[2024-04-04] MEDS: Docusate Sodium 100 MG CAPSULE PO (21:41)
[2024-04-05] MEDS: ceFAZolin Sodium/Dextrose,Iso 2 GM/50 ML PIGGYBACK IV ×2 (00:10→05:33)
[2024-04-05 04:00] VITALS: BP 148/70; PULSE 59; RESP 17; TEMP 36; O2SAT 96
[2024-04-05 07:34] VITALS: BP 181/79; PULSE 56; RESP 18; TEMP 36.1; O2SAT 97
[2024-04-05] MEDS: Ketorolac Tromethamine 15 MG/ML VIAL IVPUSH (07:56)
[2024-04-05] MEDS: Losartan Potassium 50 MG TABLET PO (07:56)
[2024-04-05] MEDS: Tamsulosin HCL 0.4 MG CAPSULE PO (07:57)
[2024-04-05] MEDS: Cholecalciferol (Vitamin D3) 25 MCG TABLET 125 MCG PO (07:57)
[2024-04-05] MEDS: Finasteride 5 MG TABLET PO (07:57)
[2024-04-05] MEDS: Docusate Sodium 100 MG CAPSULE PO (07:57)
--- NOTE | 2024-04-05 08:04 | PC.NURSE ---
Pt. alert and oriented, pleasant, steady on his feet. Moderate fall risk per protocol, refusing all fall risk protocols, independently ambulating.
--- NOTE | 2024-04-05 08:09 | HO.POSTANES ---
Post Anesthesia Evaluation Post Anesthesia Evaluation Date of Service: 04/05/24 Vital Signs: Vital Signs Temp Pulse Resp BP Pulse Ox O2 Del Method 04/05/24 07:34 97.0 F 56 18 181/79 H 97 Room Air 04/05/24 04:00 96.8 F 59 17 148/70 H 96 Room Air 04/04/24 23:38 96.8 F 71 18 159/74 H 97 Room Air Anesthesia: General Endotracheal-GETA Mental Status: Awake Pain Control: Satisfactory Nausea/Vomiting: None Hydration: Adequate Anesthesia-Related Issues: No Anes. Related Issues
--- NOTE | 2024-04-05 09:45 | PM.DS ---
DS: Providers Provider Date of Service: 04/05/24 Date of discharge: 04/05/24 Primary care physician: Javi Mcginnis MD DS: Summary Time Attestation Discharge Coordination Time (in mins): 14 Quality: Safe Use of Opioids Does Pt have an Active Cancer Diagnosis on the Problem List?: No Quality: Stroke Does the patient have a stroke diagnosis?: No Physical Exam Vital Signs: Vital Signs: Last Vital Signs Temp 97.0 F 04/05/24 07:34 Pulse 56 04/05/24 07:34 Resp 18 04/05/24 07:34 BP 181/79 H 04/05/24 07:34 Pulse Ox 97 04/05/24 07:34 O2 Del Method Room Air 04/05/24 07:34 BMI result Body Mass Index 31.1 DS: Data Data Completed and Pending Completed studies during hospitalization [Text1]: Procedures Excision of Lumbar Vertebral Disc, Open Approach (08/03/23) Fusion of Lumbar Vertebral Joint with Interbody Fusion Device, Anterior Approach, Anterior Column, Open Approach (08/03/23) Insertion of Interspinous Process Spinal Stabilization Device into Lumbar Vertebral Joint, Open Approach (08/03/23) Monitoring of Peripheral Nervous Electrical Activity, Intraoperative, External Approach (08/03/23) Removal of Internal Fixation Device from Lumbosacral Joint, Open Approach (08/03/23) Discharge Plan Discharge Patient Disposition: Home, Self-Care Referrals: Javi Mcginnis MD [Primary Care Provider] - 1 Week Discharge Medications: New oxycodone 5 mg tablet 5 mg PO Q8H PRN (Reason: pain) Qty: 20 0RF Rx Instructions: Partial Fill upon patient request. No Action ibuprofen 200 mg Tablet 400 mg PO Q8H PRN (Reason: Pain) losartan 50 mg tablet 50 mg PO BID tamsulosin 0.4 mg capsule 0.4 mg PO DAILY omeprazole 20 mg capsule,delayed release(DR/EC) 20 mg PO BID@0630,1630 finasteride 5 mg tablet 5 mg PO DAILY docusate sodium 50 mg Capsule 100 mg PO BEDTIME cholecalciferol (vitamin D3) [Vitamin D3] 125 mcg (5,000 unit) Tablet 125 mcg PO DAILY Discharge Orders: Discharge Order (Routine); Ordered 04/05/24 Ordered By: Surinder Kirkland Diet: Advance to usual diet Activity on Discharge: As tolerated Activity Restrictions/Additional Instructions: After your spinal surgery we ask you to observe the following restrictions/guidelines: Activity: It is normal to feel some discomfort as you increase your activity, but that will improve with time. We ask you avoid heavy lifting or acitivities that cause pain. As a general rule, 8lbs is a safe limit for lifting right after surgery. Walk as much as you feel comfortable but not to exhaustion. You will feel extra tired the first few days after surgery. Stay well hydrated. It is OK to walk up and down stairs You may return to driving when you are off narcotics (such as vicodin, oxycodone, dilaudid, etc), and you are back to normal functional capacity. If you have any concerns please check with office before driving. Return to work is specific to each patient and each surgery, so please speak with your doctor/PA at first follow up. Please bring paperwork such as FMLA at that time if you need it filled out. Medications: We recommend you take 1,000mg Tylenol every 8 hours for the first few weeks after surgery, if you do not have any liver issues and can tolerate this medication. Do not exceed 4,000mg daily. We will give you a short supply of narcotics after surgery (usually one weeks worth). If you need more please call the office but do not use more than prescribed. You will need to give our office 48 hours notice if you need narcotics refilled and we do not fill narcotics on weekends or evenings. If you are on a narcotic, it is a good idea to take a stool softener such as colace or senna to avoid constipation If you take blood thinner such as aspirin, Plavix, Coumadin, Effient, Eliquis etc for conditions such as Afib, DVT, Pulmonary embolus, coronary disease, stents etc please speak with your surgeon about specific details as to when you can resume these medications. You can resume NSAIDs on post op day 1 (eg: Motrin, Naproxen, etc). Follow up: Please call the office, , after surgery to arrange a 3 week follow up for wound check. Wound Care: You may remove your dressing on the first day after surgery. ?You may ?leave open to air. Please do not remove the steri strips underneath. they will fall off on their own in one week. IT IS NORMAL FOR THE WOUND TO OOZE OR BE BLOODY FOR A FEW DAYS AFTER SURGERY. ?IF THIS HAPPENS JUST PLACE NEW DRESSING OVER IT TO AVOID STAINING CLOTHES. You may shower on post op day # 1 We ask that you do not let the water soak the wound. If it does get wet, just towel dry lightly. Please do not scrub your incision or place any type of chemical/ointment on the wound. No tub baths, pools or jacuzzis for one month. If you have any leaking or redness from your wound, or fevers, please call the office. Print Language: Bahraini
--- NOTE | 2024-04-05 09:47 | MHC.CM.PN ---
Patient lives in a home w/ his . Independent w/ all care. Ambulates w/ a cane. Also has a rollator and adjustable hospital like bed. PCP Javi Mcginnis No HCP. CM provided education and offered assistance. Patient declined. Would like to discuss w/ daughter first. DP: PT rec home w/ services. Patient prefers outpatient PT. w/ dx dementia and he feels it would be disruptive to have services at home. Spine PA aware. Will dc to daughters house w/ while recovering for assistance/safetly. Grandson will transport home at 1:30 pm. RN aware.
--- NOTE | 2024-04-05 09:48 | HO.NEURO.PN ---
Neurosurgery Operative Note Date of Service: 04/05/24 Narrative: POD: 1 Procedure: L2-3 removal of instrumentation Daquan is status post removal of posterior instrumentation at L2-3. was seen this morning sitting upright in bed on 3 South. Patient reports he is up walking around is otherwise doing well. He feels his symptoms are much better than pre-operatively. He is voiding well, tolerating diet. Afebrile, vital signs stable. Full strength 5/5 LEs. Back dressings have some staining without signs of hematoma. No active sanguineous drainage. Area is dry. Plan: Daquan is status post removal of posterior instrumentation at L2-3. was seen this morning sitting upright in bed on 3 South. He is progressing normally and reports resolution of the pain he had in his low back as a result of the instrumentation. Patient meets criteria to be medically discharged home. He was seen at bedside with Dr. Martin. Surinder Martin MD,PhD [facility] [place]
[2024-04-05 14:00] VITALS: BP 161/68; PULSE 60; RESP 18; TEMP 36.1; O2SAT 94
== END 2024-04-05 14:00 | disposition home or self-care (01) ==
LOC: HO.SSS 13:52 → HO.S3 15:32
PROVIDERS: Neurological Surgery; PCP Family Medicine; Visit Provider Physician Assistant
PROC: (CPT 22852; principal; 2024-04-04 11:00)
DX: T85.840A Pain due to nervous system prosthetic devices, implants and grafts, initial encounter (principal); G89.18 Other acute postprocedural pain; Y82.8 Other medical devices associated with adverse incidents; Y92.9 Unspecified place or not applicable; M48.062 Spinal stenosis, lumbar region with neurogenic claudication; Z98.1 Arthrodesis status
CPT/HCPCS: 22852; 93005; 97162; J0131; J0665; J0690; J1100; J1885; J2003; J2371; J2405; J2704; J3010

== ENCOUNTER 2024-05-04 14:22 | Outpatient (AMB) | payer MEDICARE, MEDICAID, SELFPAY ==
--- NOTE | 2024-05-04 14:30 | A.SPINEOV_ITS ---
Intake Visit Reasons: 1st post op Intake Note: Mr. Collier is here today for his 1st post op appointment. Senior Information Developer Required: No Allergies levofloxacin [From Levaquin] Allergy (Severe, Verified 04/04/24 08:20) Tingling all over Assessment & Plan Assessment & Plan (1) S/P lumbar fusion: Code(s): Z98.1 - Arthrodesis status Category: Surgical Plan Mr Collier is 3 weeks out from his removal of instrumentation. The back pain that he was having when he was seated in getting up from a standing position is gone so he is very happy about that. He is still having issues when he stands for about 5 or 6 minutes he gets pain along the edge of the trans Kambin lateral incision. A little bit of pain toward the stab incisions for the previous pedicle screws as well. He was curious about getting a lidocaine injection in his back, but I told him that that would not be of much use as it would only last a few hours. His PCP had recommended trying it to see if there was muscle spasm in the area. I just prescribed him a muscle relaxer instead and told him to give it a shot see if it works. Also, I gave him a prescription for therapy to try some heat, ultrasound and dry needling. Can follow up with us on an as- needed basis. Jayant Martin MD, PhD [facility] Orders: Orders PT Evaluation and Treatment Today Z98.1 - Arthrodesis status Medications: New tizanidine 4 mg PO Q8H PRN 30 tabs 0RF muscle spasticity Coding Level of Care Code Global (90307) Diagnoses S/P lumbar fusion Z98.1
--- OUTSIDE RECORDS SUMMARY | 2024-05-04 17:37 | XMS_ITS | Continuity of Care Document ---
Author Organization [facility] Address [address] [place] [address] Phone Care Team Providers Care Production Assembly Supervisor Name Role Phone Unavailable Unavailable Unavailable Allergies, [...] Date Provider Providers Copied on Encounter tammy [facility], [address] [place] [address],[address], [place], [place], [id number], tel:[phone] [facility] examination 4 No Information tammy [facility], [address] [place] [address],[address], [place], [place], [id number], tel:[phone] [facility] examination 4 No Information Family History Family Member Type Diagnosis Age At Onset No Information Payers Payer name Insurance type Covered green party ID Jacky villavicencio(s) [employer] [id number] Social History Type Description Quantity Date Captured [...]
--- OUTSIDE RECORDS SUMMARY | 2024-05-04 17:37 | XMS_ITS | Encounter Summary ---
Author Organization [facility] Address [address] [place] [address] Care Team Providers Care Adoption Specialist Name Role Phone Javi Mcginnis MD Primary Care Provider [phone]- [phone] Encounter Details Date Type Department Care Team (Late st Contact Info) Description 07/21/2021 Telephone [facility] [address] [place], [place] [id number] Kirsten Stark RN Social History Tobacco Use [...] Care Team (Late st Contact Info) Description 05/12/2024 2:00 PM EDT Infusion [facility] Infusion [address] [address] 05/24/2024 10:30 AM EDT Follow-Up [facility] Urology [address] [place] [phone] Grayson Baltazar MD [address] [place] [address] 06/09/2024 12:30 PM EDT Infusion [facility] Infusion [address] [address] 07/05/2024 11:30 AM EDT Follow-Up [facility] [address] [place] [address] Mauri Collins MD [address] [place] [address] 07/05/2024 12:00 PM EDT Infusion [address] [address] 01/11/2025 9:30 AM EST Follow-Up [facility] Urology [address] [place] [phone] Grayson Baltazar MD [address] [place] [address] documented as of this encounter Visit Diagnoses Not on filedocumented in this encounter Additional Health Concerns Infection Onset Date Last Indicated Resolved Time COVID-19 - Suspected infection 11/19/2020 11/19/2020 11/19/2022 10:35 PM EDT COVID-19 - Suspected infection 04/01/2021 04/01/2021 11/20/2022 10:34 PM EDT documented as of this encounter Care Teams Adoption Specialist Relationship Specialty Start Date End Date Javi Mcginnis MD PCP - General 03/08/17 documented as of this encounter
--- OUTSIDE RECORDS SUMMARY | 2024-05-04 17:37 | XMS_ITS | Encounter Summary ---
Author Organization [facility] Address [address] [place] [address] Care Team Providers Care Welder Metal Fab Name Role Phone Javi Mcginnis MD Primary Care Provider [phone]- [phone] Encounter Details Date Type Department Care Team (Late st Contact Info) Description 04/11/[address] [address] Telephone Intake, Staff Social History Tobacco Use Types Packs/Day Years [...] encounter Miscellaneous Notes * Telephone Encounter - Karlee Vega - 04/11/2024 12:14 PM EST Left detailed message confirming new appt booked with Dr. Collins. documented in this encounter Plan of Treatment Upcoming Encounters Date Type Department Care Team (Late st Contact Info) Description 05/12/2024 2:00 PM EDT Infusion [address] [address] 05/24/2024 10:30 AM EDT Follow-Up [facility] Urology [address] [place] [phone] Grayson Baltazar MD [address] [place] [address] 06/09/2024 12:30 PM EDT Infusion [address] [address] 07/05/2024 11:30 AM EDT Follow-Up [facility] [address] [place] [address] Mauri Collins MD [address] [place] [address] 07/05/2024 12:00 PM EDT Infusion [address] [address] 01/11/2025 9:30 AM EST Follow-Up [facility] Urology [address] [place] [phone] Grayson Baltazar MD [address] [place] [address] documented as of this encounter Visit Diagnoses Not on filedocumented in this encounter Care Teams Welder Metal Fab Relationship Specialty Start Date End Date Javi Mcginnis MD PCP - General 03/08/17 documented as of this encounter
--- OUTSIDE RECORDS SUMMARY | 2024-05-04 17:37 | XMS_ITS | Encounter Summary ---
Author Organization [facility] Address [address] [place] [address] Care Team Providers Care Well Control Instructor Name Role Phone Javi Mcginnis MD Primary Care Provider [phone]- [phone] Encounter Details Date Type Department Care Team (Late st Contact Info) Description 11/25/[address] [facility] [address] [place] [address] Partha Trevino MD [address] [place] [address] Steen cell carcinoma of left upper limb, including [...] Info) Description 05/12/2024 2:00 PM EDT Infusion [facility] Center [address] [place] [address] 05/24/2024 10:30 AM EDT Follow-Up [facility] Urology [address] [place] [phone] Grayson Baltazar MD [address] [place] [address] 06/09/2024 12:30 PM EDT Infusion [facility] Infusion [address] [address] 07/05/2024 11:30 AM EDT Follow-Up [facility] [address] [place] [address] Mauri Collins MD [address] [place] [address] 07/05/2024 12:00 PM EDT Infusion [facility] Infusion [address] [address] 01/11/2025 9:30 AM EST Follow-Up [facility] Urology [address] [place] [phone] Grayson Baltazar MD [address] [place] [address] documented as of this encounter Results * Due to [place] state law, this organization might not be sharing negative HIV tests. * (ABNORMAL) CBC Auto Differential (07/14/2023 11:14 AM EDT) WBC 7.0 4.8 - 10.8 10*3/uL 07/14/2023 11:56 AM EDT [facility] RBC 4.40(L) 4.70 - 6.10 10*6/uL 07/14/2023 11:56 AM EDT [facility] Hemoglobin 14.3 13.7 - 16.5 g/dL 07/14/2023 11:56 AM EDT [facility] Hematocrit 40.6 40.5 - 48.5 % 07/14/2023 11:56 AM EDT [facility] MCV 92.3 80.0 - 94.0 fL 07/14/2023 11:56 AM EDT [facility] MCH 32.5 26.0 - 34.0 pg 07/14/2023 11:56 AM EDT [facility] MCHC 35.2 31.0 - 36.0 g/dL 07/14/2023 11:56 AM EDT [facility] RDW 14.0 12.0 - 15.0 % 07/14/2023 11:56 AM EDT [facility] RDW Standard Deviation 47.3(H) 35.1 - 43.9 fL 07/14/2023 11:56 AM EDT [facility] Platelets 569(H) 140 - 440 10*3/uL 07/14/2023 11:56 AM EDT [facility] MPV 9.0(L) 9.4 - 12.4 fL 07/14/2023 11:56 AM EDT [facility] Neutrophil % 61.2 50.0 - 75.0 % 07/14/2023 11:56 AM EDT [facility] Immature Grans % 0.1 0.0 - 0.9 % 07/14/2023 11:56 AM EDT [facility] Lymphocyte % 24.7 20.0 - 44.0 % 07/14/2023 11:56 AM EDT [facility] Monocyte % 7.9 0.0 - 14.0 % 07/14/2023 11:56 AM EDT [facility] Eosinophil % 5.4(H) 0.0 - 5.0 % 07/14/2023 11:56 AM EDT [facility] Basophil % 0.7 0.0 - 2.0 % 07/14/2023 11:56 AM EDT [facility] Neutrophil # 4.27 1.80 - 7.70 10*3/uL 07/14/2023 11:56 AM EDT [facility] Immature Grans # <0.03 0.00 - 0.03 10*3/uL 07/14/2023 11:56 AM EDT [facility] Lymphocyte # 1.70 1.00 - 4.75 10*3/uL 07/14/2023 11:56 AM EDT [facility] Monocyte # 0.60 0.00 - 6.00 10*3/uL 07/14/2023 11:56 AM EDT [facility] Eosinophil # 0.40 0.00 - 0.80 10*3/uL 07/14/2023 11:56 AM EDT [facility] Basophil # 0.10 0.00 - 0.20 10*3/uL 07/14/2023 11:56 AM EDT [facility] nRBC % 0.0 0 - 0 /100 WBCs 07/14/2023 11:56 AM EDT [facility] nRBC # <0.01 0.00 - 0.13 10*3/uL 07/14/2023 11:56 AM EDT [facility] Blood Structure of peripheral vein / Unknown Venipuncture / Unknown 07/14/2023 11:14 AM EDT 07/14/2023 11:52 AM EDT us Partha Trevino MD LAB BLOOD ORDERABLES Final Resul t Performing Organization Address City/[facility]/ZIP Co de Phone Number [facility] [address] [address], [place] [phone] * Vitamin B12 (07/14/2023 11:14 AM EDT) Vitamin B12 677 232 - 1,245 pg/mL 07/14/2023 12:36 PM EDT [facility] Blood Structure of peripheral vein / Unknown Venipuncture / Unknown 07/14/2023 11:14 AM EDT 07/14/2023 11:53 AM EDT us Partha Trevino MD LAB BLOOD ORDERABLES Final Resul t [facility] [address] [address], [place] [phone] documented in this encounter Visit Diagnoses Diagnosis 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
--- OUTSIDE RECORDS SUMMARY | 2024-05-04 17:38 | XMS_ITS | Clinical Summary ---
Author Organization [facility] Address [address] [place] [address] Care Team Providers Care Reclamation Worker Name Role Phone Unavailable Primary Care Provider [...]
--- OUTSIDE RECORDS SUMMARY | 2024-05-04 17:38 | XMS_ITS | Clinical Summary ---
Author Organization [facility] Address [address] [place] [phone] Care Team Providers Care Globe Cleaner Name Role Phone Javi Mcginnis MD Primary Care Provider [phone] Surgical History Surgery Date Site/Laterality Comments OTHER SURGICAL HISTORY 10/23/2021 PROCEDURE: GA ARTHRODESIS POSTERIOR INTERBODY 1 NTRSPC LUMBAR; COMMENT: L3-4, L4-5, L5-S1 fusion, Dr. Martin Social History Tobacco Use Types Packs/Day Years Used Date Smoking Tobacco: Never Assessed Sex and Gender Information Value Date Recorded Sex Assigned at Not on file Legal Sex Male 2:36 PM EST Gender Identity Not on file Sexual Orientation [...] DTaP,Tdap,and Td Vaccines (1 - Tdap) 1961 Pneumococcal Vaccine: 50+ Ye ars (1 of 1 - PCV) 1992 Zoster Vaccines (1 of 2) 1992 RSV Immunization Patients 60 + Years Old [...] patient's age to complete this topic Meningococcal B Vacine Aged Out No lo nger eligible based on patient's age to complete this topic RSV Immunization Patients Un david 20 months Aged Out No longer eligible b ased on patient's age to complete this topic Varicella Vaccines Aged Out No longer eligible based on patient's age to complete this topic Advance Directives Documents on File Type Date Recorded Patient Top And Seat Cover Fitter Expl anation Health Care Decision (hx) 10/23/2021 ALYSSA BERRY DIRECTIVE Care Teams Globe Cleaner Relationship Specialty Start Date End Date Javi Mcginnis MD [address] [place] [address] PCP - General Family Medicine 07/12/20
--- OUTSIDE RECORDS SUMMARY | 2024-05-04 17:38 | XMS_ITS | Referral Summary ---
Author Organization [facility] Address [address] [place] [address] Care Team Providers Care Chief Merchandising Officer Name Role Phone Javi Mcginnis MD Primary Care Provider [phone] Encounters Date Type Department Care Team Description 04/11/2024 Telephone [facility] Center [address] [place] [address] Telephone Intake, Staff 03/14/2024 12:30 PM EST Infusion [address] [address] Flaquito Davila RN Vitamin B12 deficiency (Primary Dx) 02/18/2024 2:00 PM EST Infusion [address] [address] Flaquito Davila, RN Vitamin B12 deficiency (Primary Dx) 02/07/2024 2:00 PM EST Evaluation [facility] [address] Occupational Therapy Department [address] [place] [address] Rachana Yun OT Carpal tunnel syndrome of [...] syndrome of right wrist 12/14/2022 11/04/2023 Immunizations Immunization Administration Dates Next Due Tetanus and Diphtheria [...] Info) Description 05/12/2024 2:00 PM EDT Infusion [facility] Infusion [address] [address] 05/24/2024 10:30 AM EDT Follow-Up [facility] Urology [address] [place] [phone] Grayson Baltazar MD [address] [place] [address] 06/09/2024 12:30 PM EDT Infusion [facility] Infusion [address] [address] 07/05/2024 11:30 AM EDT Follow-Up [address] [address] Mauri Collins MD [address] [place] [address] 07/05/2024 12:00 PM EDT Infusion [address] [address] 01/11/2025 9:30 AM EST Follow-Up [facility] Urology [address] [place] [phone] Grayson Baltazar MD [address] [place] [address] Procedures * Due to [place] state law, this organization might not be sharing negative HIV tests. Procedure Name Priority Date/Time Associated Diagnosis Comments COMPREHENSIVE METABOLIC PANEL STAT 01/14/2024 2:29 PM EST Personal history of Elvin cell carcinoma from Last 3 Months or Most Recently Relevant to Health Maintenance Results * Due to [place] state law, this organization might not be sharing negative HIV tests. * (ABNORMAL) Comprehensive Metabolic Panel (Once) (01/14/2024 2:29 PM EST) NA 139 136 - 145 mmol/L 01/14/2024 3:02 PM EST [facility] K 4.3 3.5 - 5.1 mmol/L 01/14/2024 3:02 PM EST [facility] Cl 104 98 - 109 mmol/L 01/14/2024 3:02 PM EST [facility] CO2 24 22 - 32 mmol/L 01/14/2024 3:02 PM [facility] Anion Gap 15 >=0 01/14/2024 3:02 PM EST [facility] Glucose 93 60 - 99 mg/dL 01/14/2024 3:02 PM [facility] Creatinine 0.91 0.50 - 1.12 mg/dL 01/14/2024 3:02 PM [facility] Calcium 9.3 8.4 - 10.4 mg/dL 01/14/2024 3:02 PM [facility] Total Protein 7.7 6.6 - 8.7 g/dL 01/14/2024 3:02 PM [facility] Albumin 4.5 3.5 - 5.0 g/dL 01/14/2024 3:02 PM [facility] Bilirubin, Total 1.0 0.2 - 1.2 mg/dL 01/14/2024 3:02 PM [facility] Alkaline Phosphatase 83 40 - 129 U/L 01/14/2024 3:02 PM [facility] AST 25 0 - 40 U/L 01/14/2024 3:02 PM [facility] ALT 19 <=41 U/L 01/14/2024 3:02 PM [facility] BUN 16 8 - 23 mg/dL 01/14/2024 3:02 PM [facility] eGFR 85 >=60 mL/min/1. 73m2 01/14/2024 3:02 PM [facility] Comment:The estimated glomer ular filtration [...] - 4.2 g/dL 01/14/2024 3:02 PM EST [facility] A/G Ratio 1.4(L) 1.5 - 3.0 01/14/2024 3:02 PM EST [facility] Blood Structure of peripheral vein / Unknown Venipuncture / Unknown 01/14/2024 2:29 PM EST 01/14/2024 2:32 PM EST us Partha Trevino MD LAB BLOOD ORDERABLES Final Resul t [facility] [address] [facility] [address] [place] [address], [place] [phone] from Last 3 Months or Most Recently Relevant to Health Maintenance [facility] Advance Directives Documents on File Type Date Recorded Patient Wafer Cleaner Expl anation Health Care Proxy 10/27/2021 Health [...] Collier Daughter Health Care Agent Care Teams Chief Merchandising Officer Relationship Specialty Start Date End Date Javi Mcginnis MD PCP - General 03/08/17
--- OUTSIDE RECORDS SUMMARY | 2024-05-04 17:38 | XMS_ITS | Clinical Summary ---
Author Organization [facility] Address [address] [place] [address] Care Team Providers Care Discount Clerk Name Role Phone Javi Mcginnis MD Primary Care Provider +1- [phone] Allergies Active Allergy Reactions Criticality Noted Date [...] Type Department Care Team Description 04/11/2024 Telephone [facility] [address] [place] [id number] Telephone Intake, Staff 03/14/2024 12:30 PM EST Infusion [address] [address] Flaquito Davila, RN Vitamin B12 deficiency (Primary Dx) 02/18/2024 2:00 PM EST Infusion [address] [address] Flaquito Davila, RN Vitamin B12 deficiency (Primary Dx) 02/07/2024 2:00 PM EST Evaluation [facility] Occupational Therapy Department [address] [place] [phone] Rachana Yun OT 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) from Last 3 Months Immunizations Immunization Administration Dates Next Due Tetanus [...] Info) Description 05/12/2024 2:00 PM EDT Infusion [facility] Infusion [address] [address] 05/24/2024 10:30 AM EDT Follow-Up [facility] Urology [address] [place] [phone] Grayson Baltazar MD [address] [place] [address] 06/09/2024 12:30 PM EDT Infusion [facility] Infusion [address] [address] 07/05/2024 11:30 AM EDT Follow-Up [facility] Center [address] [place] [address] Mauri Collins MD [address] [place] [address] 07/05/2024 12:00 PM EDT Infusion [address] [address] 01/11/2025 9:30 AM EST Follow-Up [facility] Urology [address] [place] [phone] Grayson Baltazar MD [address] [place] [phone] Health Maintenance Due Date Last Done Comments COVID-19 Vaccine (#1) 09/29/1945 Pneumococcal Vaccine: 50+ Years (1 of 2 - PCV) 1959 Zoster Vaccines (1 of 2) 1959 DTaP,Tdap,and [...] complete this topic Procedures * Due to [place] [employer] law, this organization might not be sharing negative HIV tests. Procedure Name Priority Date/Time Associated Diagnosis Comments COMPREHENSIVE METABOLIC PANEL STAT 01/14/2024 2:29 PM EST Personal history of [place] cell carcinoma from Last 3 Months or Most Recently Relevant to Health Maintenance Results * Due to [place] [employer] law, this organization might not be sharing negative HIV tests. * (ABNORMAL) Comprehensive Metabolic Panel (Once) (01/14/2024 2:29 PM EST) NA 139 136 - 145 mmol/L 01/14/2024 3:02 PM EST [facility] K 4.3 3.5 - 5.1 mmol/L 01/14/2024 3:02 PM EST [facility] Cl 104 98 - 109 mmol/L 01/14/2024 3:02 PM EST [facility] CO2 24 22 - 32 mmol/L 01/14/2024 3:02 PM EST [facility] Anion Gap 15 >=0 01/14/2024 3:02 PM EST [facility] Glucose 93 60 - 99 mg/dL 01/14/2024 3:02 PM EST [facility] Creatinine 0.91 0.50 - 1.12 mg/dL 01/14/2024 3:02 PM EST [facility] Calcium 9.3 8.4 - 10.4 mg/dL 01/14/2024 3:02 PM EST [facility] Total Protein 7.7 6.6 - 8.7 g/dL 01/14/2024 3:02 PM EST [facility] Albumin 4.5 3.5 - 5.0 g/dL 01/14/2024 3:02 PM EST [facility] Bilirubin, Total 1.0 0.2 - 1.2 mg/dL 01/14/2024 3:02 PM EST [facility] Alkaline Phosphatase 83 40 - 129 U/L 01/14/2024 3:02 PM [facility] AST 25 0 - 40 U/L 01/14/2024 3:02 PM EST [facility] ALT 19 <=41 U/L 01/14/2024 3:02 PM [facility] BUN 16 8 - 23 mg/dL 01/14/2024 3:02 PM [facility] eGFR 85 >=60 mL/min/1. 73m2 01/14/2024 3:02 PM [facility] Comment:The estimated glomer ular filtration [...] 2.1 - 4.2 g/dL 01/14/2024 3:02 PM [facility] A/G Ratio 1.4(L) 1.5 - 3.0 01/14/2024 3:02 PM [facility] Blood Structure of peripheral vein / Unknown Venipuncture / Unknown 01/14/2024 2:29 PM EST 01/14/2024 2:32 PM EST us Partha Trevino MD LAB BLOOD ORDERABLES Final Resul t [facility] [address] [place] [address], [place] [phone] from Last 3 Months or Most Recently Relevant to Health Maintenance [facility] [place] [facility] Advance Directives Documents on File Type Date Recorded Patient Glass Mould Cleaner Expl anation Health Care Proxy 10/27/2021 [...] [place] Daughter Health Care Agent Care Teams Discount Clerk Relationship Specialty Start Date End Date Javi Mcginnis MD PCP - General 03/08/17
--- OUTSIDE RECORDS SUMMARY | 2024-05-04 17:38 | XMS_ITS | Clinical Summary ---
Author Organization [facility], Address [address] [place] [address] Phone Care Team Providers Care Fight Manager Name Role Phone Javi Mcginnis MD Primary Care Provider [phone]- [phone] Allergies Active Allergy Reactions Criticality Noted Date [...] patient's age to complete this topic Insurance [facility] MEDICAID [place] Care Teams Fight Manager Relationship Specialty Start Date End Date Javi Mcginnis MD [address] [place] [address] [place] [phone] PCP - General Family Medicine 09/19/20
--- OUTSIDE RECORDS SUMMARY | 2024-05-04 17:38 | XMS_ITS | Encounter Summary ---
Author Organization [facility] Address [address] [place] [address] Care Team Providers Care Grain Farmer Name Role Phone Javi Mcginnis MD Primary Care Provider +1- [phone] Reason for Visit * Reason Onset Date Comments Actionable Finding 04/23/2023 Encounter Details Date Type Department Care Team (Late st Contact Info) Description 04/23/2023 Telephone [facility] - Actionable Findings [address] [place] [address] Melany Lopez RN Actionable Finding Social History [...] Date of scan: 04/06/23 Location of scan: [place] Actionable Findings performed a review of radiology result(s). Doreen Apodaca RNtractor mechanic apprentice at [phone] documented in this encounter Plan of Treatment Upcoming Encounters Date Type Department Care Team (Late st Contact Info) Description 05/12/2024 2:00 PM EDT Infusion [facility] [address] [place] [address] 05/24/2024 10:30 AM EDT Follow-Up [facility] Urology [address] [place] [phone] Grayson Baltazar MD [address] [place] [address] 06/09/2024 12:30 PM EDT Infusion [address] [address] 07/05/2024 11:30 AM EDT Follow-Up [facility] [address] [place] [address] Mauri Collins MD [address] [place] [address] 07/05/2024 12:00 PM EDT Infusion [address] [address] 01/11/2025 9:30 AM EST Follow-Up [facility] Urology [address] [place] [phone] Grayson Baltazar MD [address] [place] [phone] documented as of this encounter Visit Diagnoses Not on filedocumented in this encounter Care Teams Grain Farmer Relationship Specialty Start Date End Date Javi Mcginnis MD PCP - General 03/08/17 documented as of this encounter
== END 2024-05-04 14:52 | disposition home or self-care (01) ==
PROVIDERS: PCP Family Medicine; Visit Provider Physician Assistant
DX: Z98.1 Arthrodesis status (principal)
CPT/HCPCS: 99024

== ENCOUNTER → 2024-05-04 14:22 | Outpatient (BNVA) | payer MEDICARE, MEDICAID, SELFPAY | PROVIDERS: PCP Family Medicine; Visit Provider Physician Assistant | DX: Z98.1 Arthrodesis status (principal) | CPT/HCPCS: 99212 ==